=== PATIENT | female | born 1955 | race Caucasian/White ===

== ENCOUNTER 2024-03-02 13:45 | Outpatient (RCR) | payer BC, SELFPAY | END 2024-03-02 14:28 | disposition home or self-care (01) | PROVIDERS: PCP Internal Medicine; Visit Provider Family Medicine | DX: M54.2 Cervicalgia (principal); M54.16 Radiculopathy, lumbar region; Z51.89 Encounter for other specified aftercare | CPT/HCPCS: 97012; 97110; 97140; 97161 ==

== ENCOUNTER 2024-04-13 08:09 | Outpatient (CLI) | payer BC, SELFPAY ==
--- NOTE | 2024-04-13 09:00 | CRLHL7_ITS ---
For Patients: As a result of the Century Cures Act, medical imaging exams and procedure reports are released immediately into your electronic medical record. You may view this report before your referring provider. If you have questions, please contact your health care provider. Indication: SINUSITIS Technique: Performed without IV contrast Comparison: None available Findings: Frontal sinuses: Mild mucosal thickening within both frontal sinuses. Ethmoid sinuses: Clear. Maxillary sinuses: Mucosal thickening is present bilaterally, left greater than right. Partial obstruction of the left maxillary sinus drainage pathway. The right-sided pathway is patent. Sphenoid sinuses: Mild mucosal thickening present bilaterally with partial obstruction of the left sphenoethmoidal recess. The right-sided recesses patent. Nasal Cavity: Nodularity of the inferior turbinate mucosa. No polyp. Small tammy bullosa left middle turbinate. Nasal septum is relatively midline. No TMJ abnormalities identified. 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 Impression: 1. Mild bilateral sinus disease with partial obstruction of the left maxillary sinus drainage pathway and left sphenoethmoidal recess. 2. Nasal septum is midline. No nasal polyps. Please note that all CT scans at this facility use dose modulation, iterative reconstruction, and/or weight-based dosing when appropriate to reduce radiation dose to as low as reasonably achievable. Dictated by Rufino De MD @ 04/13/2024 11:29:44 AM (Electronically Signed)
== END 2024-04-13 08:10 | disposition home or self-care (01) ==
LOC: US 08:12
PROVIDERS: PCP Family Medicine; Visit Provider Family Medicine
DX: J32.9 Chronic sinusitis, unspecified (principal); J32.0 Chronic maxillary sinusitis
CPT/HCPCS: 70486

== ENCOUNTER 2024-06-20 00:12 | Emergency (ER) | payer BC, SELFPAY ==
[2024-06-20 00:21] VITALS: BP 188/93; PULSE 82; RESP 18; TEMP 36.6; O2SAT 98; BMI 27.6
--- NOTE | 2024-06-20 00:46 | ED_ITS ---
HPI - General Adult General Chief complaint: Arrhythmia/Palpitations Stated complaint: Low heart rate Time Seen by Provider: 06/20/24 00:28 Source: patient and family Mode of arrival: ambulatory Limitations: no limitations History of Present Illness HPI narrative: 68-year-old female presents emergency department for evaluation feeling of irregular heartbeat and slow pulse. This was intermittent for about a 1/2 hour. She does have a known prior history of ?irritable heart. Per her description this is consistent with either PACs or PVCs. When I mention that that is what it sounds like she tells me that that does sound correct. She has a history of hypertension. She has been treated with almost are 10 and Coreg for quite some time. Amlodipine was recently added to help lower blood pressure. She has not tolerated this well in the past due to increased palpitations and increased tenderness over her baseline. She restarted this medication at the recommendation of her cardiology in [place] a few days ago and has been noticing increased side effects. No chest pain, no severe shortness of breath. No fever or productive cough. No peripheral edema. She has no history of heart failure. She reports that she has had an echo multiple times, had a Holter monitor just a couple of months ago. Reports that her heart rate does diff to 40 overnight which of course is not unusual. She says that when she checked her heart rate that it had gotten a little slow during the runs of PVCs but then returned back to baseline. She says that this was unusual for her, prompting her to come to the ED. No recent alcohol usage, no illicit drugs or stimulants. No injury or trauma. Did not try any other interventions prior to coming to ED. does see cardiology team through [place] in [place]. Primary care team is through [facility]. No prior history of coronary artery disease or heart failure. Does have a history of hypothyroidism but reports recent endocrinology visit and that her levels were stable. Past medical history notable for hypertension, hypothyroidism. Home meds are Synthroid, Coreg, amlodipine and olmesartan. No known drug allergies. Nonsmoker. ROS notable for the low heart rate and irregular heartbeat as described above, otherwise denies times 12 systems. Related Data Home Medications ?Medication ?Instructions ?Recorded ?Confirmed amlodipine 2.5 mg tablet 2.5 mg PO DAILY 06/20/24 06/20/24 carvedilol 6.25 mg tablet 6.25 mg PO BID 06/20/24 06/20/24 Allergies Allergy/AdvReac Type Severity Reaction Status Date / Time No Known Drug Allergies Allergy Verified 04/13/24 13:45 [facility] Social History Smoking Status: Never smoker Second hand tobacco smoke exposure: No How often do you have a drink containing alcohol: never AUDIT-C Alcohol total score: 0 Non-prescribed substance use: denies use Exam Const: Vital Signs, click to edit/add: Vital Signs - 24 hr 06/20/24 00:21 Temperature 97.8 F Pulse Rate [Pulse Oximeter] 82 Respiratory Rate 18 Blood Pressure [Ri ght Upper Arm] 188/93 H Pulse Oximetry 98 Oxygen Delivery Me thod Room Air Documenting provider has reviewed patient's vital signs: yes Common normals: no apparent distress and alert General appearance: cooperative, comfortable and well kempt HENMT: Common normals: normocephalic Head and scalp: normocephalic Face and sinus: normal facial exam Eye: Common normals: conjunctivae normal General eye: normal appearance of both eyes Conjunctiva: conjunctiva(e) normal Neck & C-Spine: Common normals: no lymphadenopathy General: normal visual inspection Resp: Common normals: normal respiratory effort, no use of accessory muscles and clear to auscultation bilaterally Effort & inspection: able to speak in complete sentences Auscultation: clear to auscultation bilaterally Cardio: Common normals: regular rate, regular rhythm, S1 normal heart sound, S2 normal heart sound and no murmurs Rate: regular rate Rhythm: regular rhythm Heart sounds: S1 normal and S2 normal GI: Common normals: Normal to inspection, nondistended, normoactive bowel sounds present, soft to palpation, non-tender, no hepatosplenomegaly and no masses Palpation: soft and no hepatosplenomegaly Extremity: Common normals: normal to inspection, normal capillary refill and no pedal edema Neuro: Sensorium/orientation: alert Speech: speech normal Motor exam: strength 5/5 throughout and no movement abnormalities noted Psych: Common normals: speech normal Appearance: well kempt Attitude: engaged Activity/motor behavior: appropriate eye contact Speech: normal speech Insight: insight good Judgement: judgment good Skin: Common normals: no rashes or lesions noted General skin exam: no rashes or lesions noted Course Course ED Course: Few PVCs noted on classroom monitor. Vital signs currently stable. 68-year-old female with history of what sounds consistent with PVCs and PACs presenting with what sounds like a run of frequent PVCs and low heart rate that has since resolved. Recent starting of amlodipine could be contributing. Has had thorough workup and sees Cardiology. Recent Holter and echo per patient report were essentially normal besides the ?irritable beats? which again sound consistent with PVCs. Vitals are stable at this this time and patient is asymptomatic. Would recommend basic labs, a couple of hours of cardiac monitoring, troponin EKG. Patient was agreeable to this. Differential diagnosis including arrhythmia, hyperthyroidism, electrolyte abnormality, dehydration, acute coronary syndrome Reevaluation(s) Time of Reevaluation #1: 01:49 Reevaluation #1: Patient feeling well. Still has a few PVCs but no chest pain, severe shortness of breath. She feels reassured by my assessment and description of the PVCs. She would like to go home and rest. We discussed that the new amlodipine may be contributing but I would like for her to continue the medication for 2 weeks to see if things improve. After that, I would like for her to be in contact with her cardiology nurse practitioner to determine if a change is in order. Alarm symptoms reviewed that would warrant ED presentation. She verbalizes understanding and agreement. We did briefly discuss smart watch is with arrhythmia detectors, she may want to consider investing in 1 of these. All questions answered. Written instructions provided. Vital Signs Vital signs: Initial Vital Signs Temperature 97.8 F 06/20/24 00:21 Temperature Source Temporal Artery Scan 06/20/24 00:21 Pulse Rate 82 06/20/24 00:21 Pulse Rhythm Regular 06/20/24 00:21 Respiratory Rate 18 06/20/24 00:21 Blood Pressure 188/93 H 06/20/24 00:21 Blood Pressure Mean 124 H 06/20/24 00:21 Pulse Oximetry 98 06/20/24 00:21 Oxygen Delivery Method Room Air 06/20/24 00:21 Vital Signs Temperature 97.8 F 06/20/24 00:21 Pulse Rate 82 06/20/24 00:21 Respiratory Rate 18 06/20/24 00:21 Blood Pressure 188/93 H 06/20/24 00:21 Pulse Oximetry 98 06/20/24 00:21 Oxygen Delivery Method Room Air 06/20/24 00:21 Temperature 97.8 F 06/20/24 00:21 Pulse Rate 82 06/20/24 00:21 Respiratory Rate 18 06/20/24 00:21 Blood Pressure 188/93 H 06/20/24 00:21 Pulse Oximetry 98 06/20/24 00:21 Oxygen Delivery Method Room Air 06/20/24 00:21 Medical Decision Making Lab Data Lab results reviewed: Yes I reviewed the patient's lab results Lab results narrative: All labs reassuring. Labs: Lab Results 06/20/24 06/20/24 Range/Units 00:46 00:55 WBC 5.48 (4.50-11.00) K/uL RBC 4.54 (4.00-5.20) m/uL Hgb 13.6 (12.0-16.0) gm/dL Hct 41.1 (33.0-51.0) % MCV 91 (80-100) fL MCH 30 (26-34) pg MCHC 33 (32-36) gm/dL RDW Coeff of Milagros 13.0 (11.5-15.5) % Plt Count 244 (140-440) K/uL Neut % (Auto) 48.8 (42.0-72.0) % Lymph % (Auto) 35.6 (20-44) % [place] % (Auto) 10.2 (0.0-11.0) % Eos % (Auto) 4.0 (0.0-7.0) % Baso % (Auto) 0.7 (0.0-3.0) % Neut # (Auto) 2.67 (1.7-7.0) K/uL Lymph # (Auto) 1.95 (0.90-2.90) K/uL [place] # (Auto) 0.60 (0.00-0.90) K/UL Eos # (Auto) 0.22 (0.00-0.50) K/uL Baso # (Auto) 0.04 (0.00-0.30) K/uL Abs Immat Gran (auto) 0.04 (0.00-0.30) K/uL Imm/Tot Granulo (auto) 0.7 % Sodium 136 (135-149) mmol/L Potassium 3.9 (3.6-5.1) mmol/L Chloride 101 (96-114) mmol/L Carbon Dioxide 27 (20-32) mmol/L Anion Gap 8 (7-15) mEq/L BUN 19 (7-30) mg/dL Creatinine 0.7 (0.5-1.5) mg/dL Estimated Creat Clear 45.85 Estimated GFR 94 ml/min Glucose 107 (60-115) mg/dL Calcium 9.5 (8.4-10.6) mg/dL POC Troponin I 0.01 (0.01-0.04) ng/ml ECG Data Attestation: I personally reviewed and interpreted this ECG as follows: Prior ECG tracings: not available for review Interpretation: Sinus rhythm, rate of 61. Normal intervals and axis. No significant ST or T- wave abnormalities. PVCs noted on classroom monitor not represented on EKG. No prior comparison in our system but likely available during business hours from primary care team. Discharge Plan Discharge Clinical Impression: Symptomatic PVCs Patient Disposition: Home w/ Parent or Adult Condition: Stable Instructions: Premature Ventricular Contractions (ED) Additional Instructions: As we discussed, I think that the low heart rate that you had this evening was from a run of premature ventricular contractions. You have these every dozen or so beats here in the ED. This is a very common condition. Sometimes he will have a more extensive run of those but they are not typically dangerous. Your heart rate has been excellent here in the ED. blood work shows no secondary problems such as anemia, infection, electrolyte abnormalities, significant kidney disease, heart attack or other abnormality. I do not recommend any changes at this time. I would like for you to continue taking the amlodipine in addition to your other medications as prescribed. For many, the side effects of the medications will balance and crest after about 2 weeks. Please be in contact with your cardiology team if symptoms do not start improving within a couple of weeks. Consider investing in a fitness tracker or apple watch that has and arrhythmia detector. This may help you decide if the abnormal beats are a danger to you are not. Most find these quite helpful. Activity Level: No Restrictions Discharge Diet: Regular Prescriptions: No Action carvedilol 6.25 mg tablet 6.25 mg PO BID amlodipine 2.5 mg tablet 2.5 mg PO DAILY Follow Up/Referrals: Vesna Kennedy MD [Primary Care Provider] - Stand Alone Forms: Instant Information Info Instructions
--- OUTSIDE RECORDS SUMMARY | 2024-06-20 01:00 | XMS_ITS | Referral Summary ---
Author Organization [facility] Address [address] [place] [id number] Care Team Providers Care Tower Erector Helper Name Role Phone Elsewhere, Pcp Primary Care Provider Unavailabl e Source Comments Patient records contain information from all sites at [facility]. For routine questions regarding patient records, call [phone] during business hours, M-F 8:00 AM - 5:00 PM Central Time. Record requests for emergency care only can be directed to [phone] at any time.[facility] Encounters Date Type Department Care Team Description 04/22/2024 1:45 PM CDT Comprehensive Visit Department of Urology in [address] [phone] Tawny Mcnulty, BELINDAS, P.A.-C. Kidney And Ureter Disorder (Primary Dx) 04/19/2024 1:45 PM CDT Clinical Communication Virtual Review in [address] [phone] Pre-visit Intake 04/19/2024 2:50 PM CDT - 04/19/2024 3:09 PM CDT Hospital Encounter Department of Laboratory Medicine and Pathology, [facility] in [address] [phone] Magda Farrar M.D. Kidney And Ureter Disorder Discharge Disposition: Home or Self Care 04/19/2024 3:10 PM CDT - 04/19/2024 3:18 PM CDT Hospital Encounter Department of Radiology, [facility], in [address] [place] [address] Magda Farrar M.D. Kidney And Ureter Disorder Discharge Disposition: Home or Self Care 04/19/2024 3:19 PM CDT - 04/19/2024 11:59 PM CDT Hospital Encounter Department of Radiology, [facility], in [place], [place] [address] [place] [address] Magda Farrar M.D. Kidney And Ureter Disorder Discharge Disposition: Home or Self Care 03/21/2024 Clinical Communication Department of Urology in [place], [place] [address] [place] [address] Gilberto Flynn M.D. from Last 3 Months Allergies Active Allergy Reactions Criticality Noted Date Comments Adhesive Rash 02/11/2011 Penicillins Rash,Other (see comments) 12/28/2006 Thimerosal Other (see comments),Hives only, no other systemic symptoms 01/18/2022 Bumps on her eyes and sensitivity and redness Tuberculin Ppd Shena Test Rash 12/05/2014 Medications Medication Sig Dispensed Refills Start Date End Date Status levothyroxine (Synthroid) 75 mcg tablet Take 75 mcg by mouth daily. 05/08/2020 Active olmesartan (BENICAR) 40 mg tablet Take 40 mg by mouth daily. 05/01/2020 Active calcium carbonate-vitamin D3 1,500 mg (600 mg calcium)-200 unit per tablet Take 1 tablet by mouth daily. 02/11/2011 Active omega-3 fatty acids-fish oil 300-1,000 mg capsule Take 1 g by mouth daily. Unsure of dose Active vit A/vit C/vit E/zinc/copper (PRESERVISION AREDS ORAL) daily. Active LORazepam (ATIVAN) 0.5 mg tablet Take 0.5 mg by mouth as needed. Active magnesium oxide 200 mg magnesium tablet,chewable Chew 2 (two) times a day. 08/04/2023 Active VITAMIN B COMPLEX ORAL Take 1 tablet by mouth daily. 08/04/2023 Active carvediloL (COREG) 6.25 mg tablet Take 1 tablet (6.25 mg total) by mouth 2 (two) times a day with meals. 180 tablet 1 03/01/2024 Active mupirocin (Bactroban) 2 % ointment Apply 1 Application topically as needed. 04/13/2024 Active Active Problems Problem Noted Date Diagnosed Date Hypertension Essential Primary 02/17/2024 Palpitations 02/17/2024 Hyperlipidemia 02/17/2024 Immunizations Name Administration Dates Next Due Influenza Split 07/29/2007 Influenza TIV (IM) 07/26/2013 Influenza, Seasonal, Injectable 07/26/2013 Influenza, Unspecified 07/15/2016,07/30/2015, PPSV23 05/01/2020 RZV (SHINGRIX) 01/18/2021,07/27/2020 Tdap 10/31/2020,02/26/2009 influenza trivalent vaccine (6 months and older)(PF) 07/14/2016,07/29/2007 influenza vaccine quad (FLUZONE/FLUARIX) (6 months and older)(PF) 08/04/2022,07/23/2021,08/17/2020,2018,07/20/2018,07/22/2017,06/22/2014 Social History Tobacco Use Types Packs/Day Years Used Date Smoking Tobacco: Never Passive Smoke Exposure: Past Smokeless Tobacco: Never Tobacco Cessation:Counseling Given: Not Answered Comments:Childhood exposure Alcohol Use Standard Drinks/Week Comments Yes 1 (1 standard drink = 0.6 oz pur e alcohol) Social Connection and Isolat ion Panel [NHANES] Answer Date Recorded In a typical week, how many times do you talk on the phone with family, friends, or neighbors? More than three times a week 07/05/2020 Frequency of Social Gatherin gs with Friends and Family Not on file 07/05/2020 How often do you attend chur ch or mandaeism services? More than 4 times per year 07/05/2020 Active Member of Clubs or Organizations Not on f ile 07/05/2020 How often do you attend meet ings of the clubs or organizations you belong to? More than 4 times per year 07/05/2020 Are you , , di vorced, , never , or living with a partner? 07/05/2020 AUDIT-C Answer Date Recorded Q1: How often do you have a drink containing alc ohol? 2-3 times a week 07/05/2020 Q2: How many drinks containi ng alcohol do you have on a typical day when you are drinking? 1 or 2 07/05/2020 Q3: How often do you have si x or more drinks on one occasion? Never 07/05/2020 Overall Financial Resource Strain (CARDIA) Answe r Date Recorded How hard is it for you to pa y for the very basics like food, housing, medical care, and heating? Not hard at all 07/05/2020 PHQ-2 Answer Date Recorded PHQ-2 Score 0 07/14/2023 [facility] [place] [facility] - Occupational Stress Questionnaire Answer Date Recorded Do you feel stress - tense, restless, nervous, or anxious, or unable to sleep at night because your mind is troubled all the time - these days? Only a little 07/05/2020 Exercise Vital Sign Answer Date Recorde d On average, how many days pe r week do you engage in moderate to strenuous exercise (like a brisk walk)? 2 days Minutes of Exercise per Session Not on file 07/05/2020 Hunger Vital Sign Answer Date Recorded Within the past 12 months, y ou worried that your food would run out before you got the money to buy more. Never true 07/05/20 20 Within the past 12 months, t he food you bought just didn't last and you didn't have money to get more. Never true 07/05/2020 PRAPARE - Transportation Answer Date Re corded In the past 12 months, has l ack of transportation kept you from medical appointments or from getting medications? No 04/2020 In the past 12 months, has l ack of transportation kept you from meetings, work, or from getting things needed for daily living? No 07/05/2020 Nutrition Answer Date Recorded Nutrition: EVOO Fat Source No 07/05 On average, how many serving s of fruits and vegetables do you eat per day (serving size is equal to 1 cup or approximately the size of a tennis ball)? 2-3 07/05/2020 Dental Answer Date Recorded Dental: Regular Dentist Unknown 07/06/20 Education Answer Date Recorded What is the highest level of school you have completed or the highest degree you have received? Bachelor's degree (e.g., BA, AB, BS) 07/05/2020 Sex and Gender Information Value Date Recorded Sex Assigned at Not on file Gender Identity Not on file Sexual Orientation Not on file Last Filed Vital Signs Vital Sign Reading Time Taken Comments Blood Pressure 180/75 02/17/2024 8:11 AM CDT Pulse 70 02/17/2024 8:11 AM CDT Temperature 36.1 ??C (97 ??F) 08/17/2023 10:46 AM PINION STAKER Respiratory Rate 20 07/21/2023 2:35 PM CDT Oxygen Saturation 100% 07/06/2020 3:35 PM CDT Inhaled Oxygen Concentration - - Weight 74.2 kg (163 lb 9.3 oz) 02/17/2024 8:10 A M CDT Height 165.5 cm (5' 5.16) 08/17/2023 10:[address] Body Mass Index 27.09 08/17/2023 10:46 AM PINION STAKER Plan of Treatment Upcoming Encounters Date Type Department Care Team (Latest Contact Info) Description 07/26/2024 10:00 AM CDT Clinical Communication Virtual Review in [place], [place] 200 [place] [address] 07/27/2024 1:00 PM CDT Comprehensive Visit Division of Endocrinology in [place], [place] [address] [place] [phone] Darlin Back M.D., M.S. [address] [place] [phone] Procedures Procedure Name Priority Date/Time Associated Diagnosis Comments CT ABDOMEN WITHOUT AND WITH IV CONTRAST AND PELVIS WITH IV CON RAD - Routine (most inpatients and all outpatients) 04/19/2024 4:29 PM CDT Kidney And Ureter Disorder DX CHEST AP OR PA AND LATERAL 2 VIEWS RAD - Routine (most inpatients and all outpatients) 04/19/2024 3:17 PM CDT Kidney And Ureter Disorder ALKALINE PHOSPHATASE, S/P Routine 04/19/2024 3:03 PM CDT Kidney And Ureter Disorder ALANINE AMINOTRANSFERASE (ALT), S/P Routine 04/19/2024 3:03 PM CDT Kidney And Ureter Disorder ASPARTATE AMINOTRANSFERASE (AST), S/P Routine 04/19/2024 3:03 PM CDT Kidney And Ureter Disorder BASIC METABOLIC PANEL, S/P Routine 08/14/2023 8:23 AM PINION STAKER Hypertension Essential Primary LIPID PANEL, S Routine 07/10/2023 10:42 AM CDT Hyperlipidemia THYROID-STIMULATING HORMONE-SENSITIVE (S-TSH) Routine 07/10/2023 10:42 AM CDT Palpitations COLONOSCOPY Routine 07/06/2020 2:25 PM CDT Screening Cancer Colon from Last 3 Months or Most Recently Relevant to Health Maintenance Results * CT Abdomen without and with IV Contrast and Pelvis with IV Con (04/19/2024 4:29 PM CDT) Anatomical Region Laterality Modality Abdomen, Pelvis, Abdominal R ST LOS, Abdominal ARZ LOS, Abdominal FLA LOS N/A Computed Tomograp hy, Computed Tomography 04/19/2024 4:21 PM CDT Impressions 04/20/2024 7:38 AM CDT A couple of 2-3 mm hypodensities in the inferior right renal pole, one of which may correspond to the 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 No suspicious renal masses. Narrative 04/20/2024 7:38 AM CDT EXAM: ??CT ABDOMEN WITHOUT AND WITH IV CONTRAST AND PELVIS WITH IV CON COMPARISON: ??Renal ultrasound 02/24/2024 FINDINGS: ??In the inferior right renal pole, there are a couple of 2-3 mm hypodensities that are too small to characterize (series 6, image 74 and series 8, image 62 and 71). One of these likely corresponds to the echogenic 5 mm focus/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 No suspicious solid renal masses. No hydroureteronephrosis. 1.3 cm right adrenal nodule with density <10 HU on non-contrast phase, favored to be benign such as a lipid rich adenoma. Normal left adrenal gland. The solid organs are otherwise normal. Normal caliber bowel. No abdominopelvic lymphadenopathy. Mild aortoiliac atherosclerosis without aneurysm. Retroverted uterus with fibroids. Small fat-containing umbilical hernia. Mild levoconvex lumbar curve. No suspicious osseous lesions. The lung bases are clear. Procedure Note Mirian Urena M.D. - 04/20/2024 EXAM: CT ABDOMEN WITHOUT AND WITH IV CONTRAST AND PELVIS WITH IV CON COMPARISON: Renal ultrasound 02/24/2024 FINDINGS: In the inferior right renal pole, there are a couple of 2-3 mmhypodensities that are too small to characterize (series 6, image 74 andseries 8, image 62 and 71). One of these likely corresponds to theechogenic 5 mm focus/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 No suspicious solid renal masses. Nohydroureteronephrosis. 1.3 cm right adrenal nodule with density <10 HU on non-contrast phase,favored to be benign such as a lipid rich adenoma. Normal left adrenalgland. The solid organs are otherwise normal. Normal caliber bowel. Noabdominopelvic lymphadenopathy. Mild aortoiliac atherosclerosis withoutaneurysm. Retroverted uterus with fibroids. Small fat-containing umbilicalhernia. Mild levoconvex lumbar curve. No suspicious osseous lesions. The lungbases are clear. 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 Nosuspicious renal masses. Magda Farrar M.D. IM[facility] CT PROCEDURES * DX Chest AP or PA and Lateral 2 Views (04/19/2024 3:17 PM CDT) Anatomical Region Laterality Modality Chest, Thoracic RST LOS, Tho racic ARZ LOS, Thoracic FLA LOS N/A Digital Radiography Impressions 04/19/2024 3:19 PM CDT Clear lungs. Heart size at the upper limits of normal. Chest otherwise negative. Narrative 04/19/2024 3:19 PM CDT EXAM: ??DX CHEST AP OR PA AND LATERAL 2 VIEWS Procedure Note Andry Man M.D. - 04/19/2024 EXAM: DX CHEST AP OR PA AND LATERAL 2 VIEWS IMPRESSION: Clear lungs. Heart size at the upper limits of normal. Chest otherwisenegative. Magda Farrar M.D. IMG DIAGNOSTIC IM AGING PROCEDURES * ALT (Alanine Aminotransferase) (04/19/2024 3:03 PM CDT) Alanine Aminotransferase (ALT), S 20 7 - 45 U/L 04/19/2024 3:54 PM CDT DTL Blood (Blood, Venous) 04/19/2024 3:03 PM CDT 04/19/2024 3:36 PM CDT Magda Farrar M.D. LAB BLOOD ADD-ON Performing Organization Address City/[facility]/ZIP Co de Phone Number [facility] [address] [place] [address] * AST (Aspartate Aminotransferase) (04/19/2024 3:03 PM CDT) Aspartate Aminotransferase (AST), S 18 8 - 43 U/L 04/19/2024 3:54 PM CDT DTL Blood (Blood, Venous) 04/19/2024 3:03 PM CDT 04/19/2024 3:36 PM CDT Magda Farrar M.D. LAB BLOOD ADD-ON [facility] [address] [place] [address] * Alkaline Phosphatase (04/19/2024 3:03 PM CDT) Alkaline Phosphatase, S 67 35 - 104 U/L 04/19/2024 3:54 PM CDT DTL Blood (Blood, Venous) 04/19/2024 3:03 PM CDT 04/19/2024 3:36 PM CDT Magda Farrar M.D. LAB BLOOD ADD-ON [facility] [address] [place] [address], [facility] DTL [facility] [address] [place] [address] * (ABNORMAL) Basic Metabolic Panel (08/14/2023 8:23 AM PINION STAKER) Pathologist [facility] Potassium, P 4.3 3.6 - 5.2 mmol/L 08/14/2023 10:51 AM PINION STAKER OWAT Sodium, P 139 135 - 145 mmol/L 08/14/2023 10:51 AM PINION STAKER OWAT Chloride, P 103 98 - 107 mmol/L 08/14/2023 10:51 AM PINION STAKER OWAT Bicarbonate, P 21(L) 22 - 29 mmol/L 08/14/2023 10:50 AM PINION STAKER OWAT Anion Gap, P 15 7 - 15 08/14/2023 10:51 AM PINION STAKER OWAT BUN (Blood Urea Nitrogen), P 14 6 - 21 mg/dL 08/14/2023 10:50 AM PINION STAKER OWAT Creatinine 0.71 0.59 - 1.04 mg/dL 08/14/2023 10:50 AM PINION STAKER OWAT Estimated GFR (eGFR) >90 >=60 mL/min/BSA 08/14/2023 10:50 AM PINION STAKER OWAT Comment: Estimated GFR calculated using the 2020 CKD_EPI creatinine equation. Calcium, Total, P 9.2 8.8 - 10.2 mg/dL 08/14/2023 10:50 AM PINION STAKER OWAT Glucose, P 99 70 - 140 mg/dL 08/14/2023 10:50 AM PINION STAKER OWAT Blood (Blood, Venous) 08/14/2023 8:23 AM PINION STAKER 08/14/2023 8:36 AM PINION STAKER Estrella Garza APRN, C.N.P., D.N.P. LAB BLOOD ADD-ON [facility] [address] [place] [address], [facility] OWAT [facility] [place] [address] [place] [address] * (ABNORMAL) Lipid Panel (07/10/2023 10:42 AM CDT) Triglycerides 54 mg/dL 07/10/2023 1:53 PM CDT OWAT Comment: ----REFERENCE VALUE---- Normal: <150 mg/dL Borderline High: 150-199 mg/dL High: 200-499 mg/dL Very High: > or =500 mg/dL Cholesterol, Total 227(H) mg/dL 2022 1:53 PM CDT OWAT Comment: ----REFERENCE VALUE---- Desirable: < 200 mg/dL Borderline High: 200 - 239 mg/dL High: > or = 240 mg/dL Cholesterol, LDL, Calculated 142(H) mg/dL 07/10/2023 1:53 PM CDT OWAT Comment: ----REFERENCE VALUE---- Desirable: <100 mg/dL Above Desirable: 100-129 mg/dL Borderline High: 130-159 mg/dL High: 160-189 mg/dL Very High: >=190 mg/dL ----ADDITIONAL INFORMATION---- LDL cholesterol calculated using the Sterling/NIH equation. Cholesterol, HDL 76 >=50 mg/dL 07/10/20 1:53 PM CDT OWAT Cholesterol, Non-HDL, Calculated 151 mg/dL 07/10/2023 1:53 PM CDT OWAT Comment: ----REFERENCE VALUE---- Desirable: <130 mg/dL Above Desirable: 130-159 mg/dL Borderline High: 160-189 mg/dL High: 190-219 mg/dL Very High: > or =220 mg/dL Fasting (8 HR or more) Yes 07/10/2023 1:11 PM CDT OWAT Blood (Blood, Venous) 07/10/2023 10:42 AM CDT 07/10/2023 1:11 PM CDT Jaquelin Sher M.D. LAB BLOOD ADD-ON [facility] [address] [place] [address], [place] OWAT [facility] in [place] [address] [place] [address] from Last 3 Months or Most Recently Relevant to Health Maintenance Care Teams Tower Erector Helper Relationship Specialty Start Date End Date Elsewhere, Pcp PCP - General Family Medicine 04/19/24
--- OUTSIDE RECORDS SUMMARY | 2024-06-20 01:00 | XMS_ITS | Clinical Summary ---
Author Organization [facility] Address [place], [place] [address] Care Team Providers Care Product Tester Name Role Phone Vesna Kennedy MD Primary Care Provider [phone] Allergies Active Allergy Reactions Criticality Noted Date Comments Adhesive Rash 02/11/2011 Penicillins Rash 02/11/2011 Thimerosal Other - Describe In Comment Field 01/18/2022 Bumps on her eyes and sensitivity and redness Tuberculin Ppd Erythema,Rash 04/21/2012 From the second step. Medications Medication Sig Dispensed Refills Start Date End Date Status calcium carbonate-choleca lciferol, 600mg-200 units, (CALCIUM 600 + D,3,) 600 mg(1,500mg) -200 unit tablet Take 1 tablet by mouth 2 times daily with meals. 0 02/11/2011 Active SYNTHROID 75 mcg tablet Take 1 tablet by mouth once daily. 90 tablet 3 05/08/2020 Active fish oil-omega-3 fatty acids 300-1,000 mg Take 1 g by mouth. Acti ve vit A/vit C/vit E/zinc/copper (PRESERVISION AREDS ORAL) PreserVision AREDS Activ e vitamin B complex-folic acid (B Complex 1, with folic acid,) 0.4 mg tab tablet Take 1 Tablet by mouth once daily. 0 08/04/2023 Active magnesium oxide 200 mg magnesium chew Chew by mouth. 0 08/04/2023 Active LORazepam (ATIVAN) 0.5 mg tabIndications:Se rajni anxiety Take 1 Tablet (0.5 mg) by mouth every 6 hours if needed for Anxiety (panic). 5 Tablet 02/03/2024 Active carvediloL (COREG) 6.25 mg tablet Take 6.25 mg by mouth two times daily with meals. 03/01/2024 Active olmesartan (BENICAR) 40 mg tabletIndications :Hypertension, unspecified type Take 1 Tablet (40 mg) by mouth once daily. 90 Tablet 2 05/23/2024 Active amLODIPine (NORVASC) 2.5 mg tabletIndications :HTN (hypertension) Take 1 Tablet (2.5 mg) by mouth once daily. 90 Tablet 06/16/2024 Active olmesartan (BENICAR) 40 mg tabletIndications :Hypertension, unspecified type Take 1 Tablet (40 mg) by mouth once daily. 90 Tablet 1 02/03/2024 Discontinue d(*Availabi lity/Formul ayesha change/Cost of medication) Active Problems Problem Noted Date Diagnosed Date Spider veins 01/19/2017 Varicose vein of leg 01/19/2017 Gouty arthropathy 07/02/2012 Mixed hyperlipidemia 07/02/2012 Prediabetes 07/02/2012 VINCENZO 04/19/2012 AHI-9.9 in REM non-supine sleep, R DI-7.2 06/21/2012 Thyroiditis 05/22/2012 Overview (05/22/2012): Being seen at [place] for this. Restless leg syndrome 04/30/2012 Palpitations 03/30/2012 Bunion 09/12/2011 Overview (09/12/2011): Left great toe HTN (hypertension) 02/11/2011 Macular changes, congenital 02/11/2011 Resolved Problems Problem Noted Date Diagnosed Date Resolved Date Pericardial effusion 04/30/2012 017 Restless leg syndrome 04/30/20122011 Snoring 03/30/2012 12/11/2016 MVP (mitral valve prolapse) 02/11/2011 04/30/2012 Encounters Date Type Department Care Team Description 06/16/2024 10:25 AM CDT Preop Visit [facility] [address] [place], [place] [id number] Vesna Kennedy MD Pre-Op Exam (07/01/2024, [facility], Cecilia'Adrienne, Septoplasty) 06/16/2024 Travel 05/31/2024 Telephone [facility] [address] [facility] [address] Vesna Kennedy MD Appointment (APPT REQUEST ) 05/20/2024 Refill [facility] [address] [place] [address] Vesna Kennedy MD Refill Request (Olmesartan) 04/26/2024 8:10 AM CDT Orders Only [facility] [address] [place] [address] Lab, [facility] 04/26/2024 Travel 04/13/2024 Orders Only [facility] Scanner 1 scan: (1-Ord) [place], CT CINUS WO CON, 04/13/2024 from Last 3 Months Immunizations Name Administration Dates Next Due COVID-19 vaccine (IR Diagnostyx 30mcg/0.3mL) PFMDV 10/16/2020,09/25/2020 Influenza Virus, Unspecified 07/30/2015,07/11/20 14 Influenza, IIV3 (Age 6-35 mos) 07/14/2016,2006 Influenza, IIV3 (Age >=3 years) 07/26/2013 Influenza, IIV4 08/04/2022,,08/17/2020,2018,07/20/2018,07/22/2017,07/15/2016,0 06/22/2014 Pneumococcal Poly,23-Valent (Pneumovax) 05/01/2020 Tdap 10/31/2020,02/26/2009 Zoster (Shingrix-RZV, recombinant) 01/18/2021, Family History Medical History Relation Name Comments Diabetes type II Brother Hypertension Brother COPD Father passed at age 8 3 Diabetes type II Mother Hypertension Mother Congenital heart disease Sister at 8 days of age Relation Name Status Comments Brother Father Mother Alive Sister Social History Tobacco Use Types Packs/Day Years Used Date Smoking Tobacco: Never Smokeless Tobacco: Never Tobacco Cessation:Counseling Given: Yes Alcohol Use Standard Drinks/Week Comments Yes 2 (1 standard drink = 0.6 oz pur e alcohol) occassional PHQ-2 Answer Date Recorded PHQ-2 TOTAL SCORE 0 09/18/2023 Social Connections Answer Date Recorded Frequency of Communication with Friends and Fami ly 0 08/04/2023 Financial Resource Strain Answer Date R ecorded Difficulty of Paying Living Expenses 3 08/04/2023 Difficulty of Paying Living Expenses Not on file 08/04/2023 Food Insecurity Answer Date Recorded Worried About Running Out of Food in the Last Ye ar 1 08/04/2023 Transportation Needs Answer Date Record ed Lack of Transportation (Medical) 1 08/04/2023 Housing Stability Answer Date Recorded Unable to Pay for Housing in the Last Year 1 08/04/2023 Sex and Gender Information Value Date Recorded Sex Assigned at Not on file Gender Identity Not on file Sexual Orientation Not on file Obstetrics History Last Filed Vital Signs Vital Sign Reading Time Taken Comments Blood Pressure 162/82 06/16/2024 11:11 AM CDT Pulse 59 06/16/2024 10:27 AM CDT Temperature 37 ??C (98.6 ??F) 06/16/2024 10:27 AM CDT Respiratory Rate 14 09/10/2023 9:32 AM 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 Oxygen Saturation 97% 06/16/2024 10:27 AM CDT Inhaled Oxygen Concentration - - Weight 73.3 kg (161 lb 9.6 oz) 06/16/2024 10:27 AM CDT Height 162.6 cm (5' 4) 06/16/2024 10:27 AM CDT Body Mass Index 27.74 06/16/2024 10:27 AM CDT Plan of Treatment Health Maintenance Due Date Last Done Comments Mammogram for age 45-75 04/06/2021 04/06/20 20 (Completed outside of [facility]), 02/23/2018 (Completed outside of [facility]), 11/26/2014, Additional history exists Pneumococcal series for age 65+ (2 of 2 - PCV) 05/01/2021 05/01/2020 COVID-19 vaccine series (3 - 2022- season) 2024 10/16/2020, 09/25/2020 Influenza for age 65+ 05/29/2024 08/04/2022 , 07/23/2021, 08/17/2020, Additional history exists Depression screening for age 12+ 09/18/2024 09/18/2023, 09/17/2023, 07/03/2022, Additional history exists BMI (ht and wt on same day) for age 18+ 06/16/2025 06/16/2024, 12/25/2023, 09/23/2023, Additional history exists Colonoscopy through age 75 07/06/202507/06 (Verified in Care Everywhere or Patient Record), 06/26/2015, 07/13/2008 (Completed outside of [facility]) Lipids for age 45-75 12/20/2028 12/21/2023, 07/03/2022, 05/31/2021, Additional history exists Tetanus booster 10/31/2030 10/31/2020, 09/2008, 12/13/2008 (Completed outside of [facility]) Hepatitis C screening for ag e 18-79 Completed 05/01/2020 DEXA/DXA scan for age 65+ Completed 08/21/2020 Tdap Completed 10/31/2020, 01/27 (Completed outside of [facility]), 02/26/2009 Zoster (shingles) series for age 50+ Completed 01/18/2021, 07/27/2020 Procedures Procedure Name Priority Date/Time Associated Diagnosis Comments BASIC METABOLIC PANEL Routine 06/16/2024 11:23 AM CDT HTN (hypertension) TSH Routine 04/26/2024 8:20 AM CDT Hypothyroidism (acquired) SCAN-CT INTERPRETATION 04/13/2024 12:00 AM CDT LIPID PANEL Routine 12/21/2023 8:41 AM CDT Pure hypercholesterolemia XR DXA BONE DENSITY 2 SITES AXIAL Routine 08/21/2020 9:54 AM 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 Fasting reference interval UREA NITROGEN (BUN) 16 7 - 25 mg/dL [facility] CREATININE 0.78 0.50 - 1.05 mg/dL [facility] EGFR 82 > OR = 60 mL/min/1. 73m2 [facility] BUN/CREATININE RATIO SEE NOTE: 6 - 22 (calc) [facility] Comment: ?? Not Reported: BUN and Creatinine are within ?? reference range. ? SODIUM 134(L) 135 - 146 mmol/L [facility] POTASSIUM 4.4 3.5 - 5.3 mmol/L [facility] CHLORIDE 99 98 - 110 mmol/L [facility] CARBON DIOXIDE 27 20 - 32 mmol/L [facility] ELECTROLYTE BALANCE 8 7 - 17 mmol/L (calc) [facility] CALCIUM 9.3 8.6 - 10.4 mg/dL [facility] Blood BLOOD SPECIMEN / Unknown 06/16/2024 11:23 AM CDT 06/16/2024 11:24 AM CDT Vesna Kennedy MD CHEMISTRY Location [facility] [address] [place] [address], [facility] [address] [place] [address] * TSH (04/26/2024 8:20 AM CDT) Pathologist [facility] TSH 2.36 0.27 - 4.20 uIU/mL 04/26/2024 8:51 AM CDT [facility] Blood BLOOD SPECIMEN / Unknown Venipuncture / Unknown 04/26/2024 8:20 AM CDT 04/26/2024 8:21 AM CDT Narrative [facility] - 04/26/2024 8:51 AM CDT In Adults, TSH values between 5.00 and 10.00 uIU/ml do not necessarily indicate the presence of Hypothyroidism. Correlation with clinical findings such as presence of goiter and/or Thyroperoxidase (TPO) Antibody may be helpful. For more information please refer to MARIA DOLORES 2004; 291: 228-238. Vesna Kennedy MD CHEMISTRY [facility] [address] [place] [address] * SCAN-CT INTERPRETATION (04/13/2024 12:00 AM CDT) Anatomical Region Laterality Modality Other Scanner OTHER * (ABNORMAL) LIPID PANEL (12/21/2023 8:41 AM CDT) CHOLESTEROL,TOTAL 214(H) 100 - 199 mg/dL 12/21/2023 9:05 AM [facility] Comment: Cholesterol, Total Reference Ranges Desirable <200 mg/dL Borderline 200-239 mg/dL High >=240 mg/dL TRIGLYCERIDES 42 <150 mg/dL 12/21/2023 9:05 AM [facility] HDL CHOLESTEROL 83 >40 mg/dL 9:05 AM [facility] NON-HDL CHOLESTEROL 131 <145 mg/dl 12/21/2023 9:05 AM [facility] CHOL/HDL RATIO 2.58 <4.50 12/21/2023 9:05 AM [facility] LDL CHOLESTEROL 123 <=130 mg/dL 12/21/2023 9:05 AM [facility] VLDL CHOLESTEROL 8 <=30 mg/dL 12/21/2023 9:05 AM [facility] PROVIDER ORDERED STATUS RANDOM 12/21/2023 9:05 AM [facility] Blood BLOOD SPECIMEN / Unknown Venipuncture / Unknown 12/21/2023 8:41 AM CDT 12/21/2023 8:41 AM CDT Mirtha Sotomayor MD CHEMISTRY [facility] [address] [place] [address] * (ABNORMAL) XR DXA BONE DENSITY 2 SITES AXIAL (08/21/2020 9:54 AM 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 Vesna Kennedy MD DEXA * ANTI HCV (05/01/2020 8:51 AM CDT) HEPATITIS C ANTIBODY Non-React chloe Non-React chloe 05/01/2020 3:26 PM CDT [facility] Comment:Antibodies to HCV no t detected; does not exclude the possibility of exposure to HCV. Blood BLOOD SPECIMEN / Unknown Butterfly / Unknown 05/01/2020 8:51 AM CDT 05/01/2020 8:52 AM CDT Vesna Kennedy MD SEND OUTS [facility] [address] [place] [address], [place] from Last 3 Months or Most Recently Relevant to Health Maintenance Care Teams Product Tester Relationship Specialty Start Date End Date Vesna Kennedy MD [address] [place] [address] PCP - General Family Practice 03/25/19
--- OUTSIDE RECORDS SUMMARY | 2024-06-20 01:00 | XMS_ITS | Encounter Summary ---
Author Organization [facility] Address [address] [place] [address] Care Team Providers Care Community Service Worker Name Role Phone Elsewhere, Pcp Primary Care Provider Unavailabl e Reason for Referral * Outpatient (Routine) - Authorized Specialty Diagnoses / Procedures Referred By Contac t Referred To Contact Urology Tawny Mcnulty MPAS, P.A.-CLuis Fernando [address] [place] [phone] Gilberto Flynn M.D. [address] [place] [phone] Referral ID Status Reason Start Date Expiration Date V isits Requested Visits Authorized [id number] Authorized 04/22/2024 10/22/2025 1 1 * MRI/CAT/PET Scan (Routine) - Pending Review Specialty Diagnoses / Procedures Referred By Contac t Referred To Contact Radiology Diagnoses Kidney And Ureter Disorder Procedures CT Abdomen Pelvis without and with IV Contrast Tawny Mcnulty MPAS, P.A.-C. [address] [place] [phone] [facility] Referral ID Status Reason Start Date Expiration Date V isits Requested Visits Authorized [id number] Pending Review 04/22/2024 04/22/2025 1 1 Reason for Visit * Appointment Request (Routine) - Closed Specialty Diagnoses / Procedures Referred By Medhat reeves Referred To Contact Urology Diagnoses Angiomyolipoma Kidney Right Vesna Kennedy M.D. [address] [place] [address] Referral ID Status Reason Start Date Expiration Date Visits Re quested Visits Authorized [id number] Closed 03/18/2024 03/18/2025 1 1 Encounter Details Date Type Department Care Team (Late st Contact Info) Description 04/22/2024 1:45 PM CDT Comprehensive Visit Department of Urology in [place], [place] [address] [place] [address] Tawny Mcnulty MPAS, P.A.-C. [address] [place] [address] Kidney And Ureter Disorder (Primary Dx) Social History Tobacco Use Types Packs/Day Years Used Date Smoking Tobacco: Never Passive Smoke Exposure: Past Smokeless Tobacco: Never Comments:Childhood exposure Alcohol Use Standard Drinks/Week Comments [...] often do you attend chur ch or bahai services? More than 4 times per year [...] Answer Date Recorded PHQ-2 Score 0 07/14/2023 [facility] - Occupational Stress [...] Date Recorded Dental: Regular Dentist Unknown 07/06/20 23 Education Answer Date Recorded What is the highest level of school you have completed or the highest degree you have received? Bachelor's degree (e.g., BA, AB, BS) 07/05/2020 Sex and Gender Information Value Date Recorded Sex Assigned at Not on file Gender Identity Not on file Sexual Orientation Not on file documented as of this encounter Consult Notes * Tawny Mcnulty MPAS, PMychal. - 04/22/2024 1:45 PM CDT SUBJECTIVE REQUESTING PROVIDER Vesna Kennedy M.D. REASON FOR CONSULT Right renal finding HISTORY OF PRESENT ILLNESS Yuni Wilcox is 68 y.o. and referred for evaluation of incidentally discovered right renal findings. Patient has been undergoing evaluation of hypertension and underwent ultrasound of the kidneys on 02/24/2024. 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 She was further evaluated with a CT of the abdomen on 04/19/2024, which showed a couple of 2-3 mm hypodensities in the inferior right renal pole, 1 of which may correspond to the 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 No suspicious renal masses. Also noted was a 1.3 right adrenal nodule with density less than 10 a on noncontrast phase, favored to be benign such as a lipid rich adenoma. Patient denies any family history of kidney cancer or bladder cancer. She denies gross hematuria, flank pain, urinary tract infections, or other urinary concerns. Lifetime nonsmoker. She does continue to struggle with blood pressure control and has been working closely with the Cardiology team in this regard. Social History: Social History Tobacco Use Smoking status: Never Passive exposure: Past Smokeless tobacco: Never Tobacco comments: Childhood exposure Substance Use Topics Alcohol use: Yes Alcohol/week: 1.0 - 3.0 standard drink of alcohol Types: 1 - 3 Glasses of wine per week Family History: Family History Problem Relation Name Age of Onset Colon cancer Aunt REVIEW OF SYSTEMS Per HPI. Patient Active Problem List Diagnosis Hypertension Essential Primary Palpitations Hyperlipidemia PAST SURGICAL/MEDICAL HISTORY Past Surgical History: Procedure Laterality Date JOINT REPLACEMENT OTHER CONVERTED SHX (SEE COMMENT) N/A 10/05/2007 >Colonoscopy, low risk screen Past Medical History: Diagnosis Date Apnea Sleep Obstructive Arrhythmia Beat Premature Ventricular Cancer Colon Family History Dysfunction Thyroid Hypertension NOS OBJECTIVE PHYSICAL EXAM General: Alert, oriented, no acute distress LABORATORY Recent Results (from the past 72 hour(s)) AST (Aspartate Aminotransferase) Collection Time: 04/19/24 3:03 PM Result Value Aspartate Aminotransferase (AST), S 18 ALT (Alanine Aminotransferase) Collection Time: 04/19/24 3:03 PM Result Value Alanine Aminotransferase (ALT), S 20 Alkaline Phosphatase Collection Time: 04/19/24 3:03 PM Result Value Alkaline Phosphatase, S [address] Abdomen without and with IV Contrast and Pelvis with IV Con Result Date: 04/20/2024 Narrative: EXAM: CT ABDOMEN WITHOUT AND WITH IV [...] otherwise normal. Normal caliber bowel. No abdominopelvic lymphadenop athy. Mild aortoiliac atherosclerosis without aneurysm. Retroverted uterus with fibroids. Small fat-containing umbilical hernia. Mild levoconvex lumbar curve. No suspicious osseous lesions. The lung bases are clear. Impression: A couple of 2-3 mm hypodensities in the inferior right renal pole, one of which may correspond to the 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 No suspicious renal masses. DX Chest AP or PA and Lateral 2 Views Result Date: 04/19/2024 Narrative: EXAM: DX CHEST AP OR PA AND LATERAL 2 VIEWS Impression: Clear lungs. Heart size at the upper limits of normal. Chest otherwise negative. ASSESSMENT / PLAN #1 Right renal lesions It was a pleasure meeting with Ms. Wilcox today in clinic for evaluation of the right renal findings. We discussed the CT results which show a few small lesions in the right renal pole which are toosmall to characterize. I recommend we complete a follow up image in approximately 6 months to ensure stability of the findings. In regard to the right adrenal finding, I have encouraged the patient to reach out to her primary care provider to determine additional steps for this finding. She is in agreement with this plan of care. Plan Follow up six-months with CT abdomen imaging and office visit with a renal provider. Signed by: JEANNE Cedeno P.A.-C. 04/22/2024 1:53 PM CDT documented in this encounter Plan of Treatment Upcoming Encounters Date Type Department Care Team (Latest Contact Info) Description 07/26/2024 10:00 AM CDT Clinical Communication Virtual Review in [place], [place] [address] [place] [address] 07/27/2024 1:00 PM CDT Comprehensive Visit Division of Endocrinology in [place], [place] [address] [place] [phone] Darlin Back M.D., M.S. [address] [place] [phone] Scheduled Orders Name Type Priority Associated Diagnoses Orde r Schedule CT Abdomen Pelvis without and with IV Contrast Imaging RAD - Routine (most inpatients and all outpatients) Kidney And Ureter Disorder Expected: 10/23/2024, Expires: 07/23/2025 Creatinine with Estimated GFR Lab Routine Kidney And Ureter Disorder Expected: 10/23/2024, Expires: 07/23/2025 Scheduled Referrals Name Type Priority Associated Diagnoses Orde r Schedule Urology office visit (clinic) General Outpatient Referral Routine Expected: 10/23/2024, Expires: 07/23/2025 documented as of this encounter Visit Diagnoses Diagnosis Kidney And Ureter Disorder- Primary documented in this encounter Care Teams Community Service Worker Relationship Specialty Start Date End Date Elsewhere, Pcp PCP - General Family Medicine 04/19/24 documented as of this encounter
--- OUTSIDE RECORDS SUMMARY | 2024-06-20 01:00 | XMS_ITS ---
Author Organization [facility] Address [address] [place] [address] Care Team Providers Care Breakfast And Room Attendant Name Role Phone Unavailable Unavailable Unavailable Surgery Details Not on file Complications Check Surgery Details section. Procedure Estimated Blood Loss Check Surgery Details section. Procedure Findings Check Surgery Details section. Procedure Specimens Taken Check Surgery Details section.
--- OUTSIDE RECORDS SUMMARY | 2024-06-20 01:00 | XMS_ITS | Referral Summary ---
Author Organization [facility] Address [address] [place] [address]. [place] [address] Care Team Providers Care Intensive Care Specialist Name Role Phone Rufino Perrin MD Primary Care Provider [phone] Social History Tobacco Use Types Packs/Day Years Used Date Smoking Tobacco: Never Assessed Adolescent Education Answer Date Record ed Getting School Help Needed Not on file 06/26 Sex and Gender Information Value Date Recorded Sex Assigned at Not on file Gender Identity Not on file Sexual Orientation Not on file Plan of Treatment Not on file Procedures Procedure Name Priority Date/Time Associated Diagnosis Comments MA SCREENING BILATERAL W/ EZIO Routine 07/28/2023 3:45 PM CDT Mammographic microcalcification from Last 3 Months or Most Recently Relevant to Health Maintenance Results * MA Screen Bilateral w/Ezio (07/28/2023 3:45 PM CDT) Anatomical Region Laterality Modality Breast Bilateral Mammography Impressions 07/29/2023 8:50 AM CDT IMPRESSION: ACR BI-RADS Category 1: Negative RECOMMENDED FOLLOW-UP: Annual routine screening mammogram The results and recommendations of this examination will be communicated to the patient. Esvin Dobbins MD Narrative 07/29/2023 8:50 AM CDT BILATERAL FULL FIELD DIGITAL SCREENING MAMMOGRAM WITH TOMOSYNTHESIS Performed on: 07/28/23 Compared to: 07/04/2022 and 02/13/2017 Technique: ??This study was evaluated with the assistance of Computer-Aided Detection. ??Breast Tomosynthesis was used in interpretation. Findings: The breasts are heterogeneously dense, which may obscure small masses. ??There is no radiographic evidence of malignancy. Rufino Perrin MD [facility] from Last 3 Months or Most Recently Relevant to Health Maintenance Care Teams Intensive Care Specialist Relationship Specialty Start Date End Date Rufino Perrin MD [address] [place] [phone] PCP - General medical sales representative 12/06/13
--- OUTSIDE RECORDS SUMMARY | 2024-06-20 01:00 | XMS_ITS | Clinical Summary ---
Author Organization [facility] Address [address] [place] [address]. [place] [address] Care Team Providers Care Forgesmith Name Role Phone Rufino Perrin MD Primary Care Provider Family History Medical History Relation Comments Colon Cancer Maternal Aunt Breast Cancer Paternal Cousin 50s Ovarian Cancer No family hx of Relation Status Comments Maternal Aunt Paternal Cousin Other Social History Tobacco Use Types Packs/Day Years Used Date Smoking Tobacco: Never Assessed Adolescent Education Answer Date Record ed Getting School Help Needed Not on file 06/26 Sex and Gender Information Value Date Recorded Sex Assigned at Not on file Gender Identity Not on file Sexual Orientation Not on file Plan of Treatment Health Maintenance Due Date Last Done Comments ADVANCE CARE PLANNING 1955 ANNUAL REVIEW OF HM ORDERS 1954 CT COLONOGRAPHY 1954 DEXA 1954 FIT 1954 FLEX SIG 1954 GLUCOSE 1954 sDNA (Cologuard) 1954 COLONOSCOPY 1964 COLORECTAL CANCER SCREENING 1964 HEPATITIS C SCREENING 1972 LIPID 1994 FALL RISK ASSESSMENT 2019 Pneumococcal Vaccine: 65+ Years (2 of 2 - PCV) 05/01/2021 05/01/2020 MEDICARE ANNUAL WELLNESS VISIT 09/10/2021 09/10/2020 PHQ-2 (once per calendar year) 2023 COVID-19 Vaccine ( - season) 2024 10/16/2020, 09/25/2020 INFLUENZA VACCINE (#1) 2024 2, 07/23/2021, 08/17/2020, Additional history exists MAMMO SCREENING 07/28/2025 07/28/2023, 03/2022, 06/12/2021, Additional history exists RSV VACCINE (1 - 1-dose 75+ series) 2029 DTAP/TDAP/TD IMMUNIZATION (3 - Td or Tdap) 10/31/2030 10/31/2020, 02/26/2009 ZOSTER IMMUNIZATION Completed 01/18/2021, 0 HPV IMMUNIZATION Aged Out No longer e ligible based on patient's age to complete this topic MENINGITIS IMMUNIZATION Aged Out No l onger eligible based on patient's age to complete this topic RSV MONOCLONAL ANTIBODY Aged Out No l onger eligible based on patient's age to complete this topic Procedures Procedure Name Priority Date/Time Associated Diagnosis [...] Recently Relevant to Health Maintenance Care Teams Forgesmith Relationship Specialty Start Date End Date Rufino Perrin MD [address] [phone] PCP - General carcass washer 12/06/13
--- OUTSIDE RECORDS SUMMARY | 2024-06-20 01:00 | XMS_ITS | Encounter Summary ---
Author Organization [facility] Address [address] [place] [id number] Care Team Providers Care Weight Control Lecturer Name Role Phone Elsewhere, Pcp Primary Care Provider Unavailabl e Reason for Visit * Reason Onset Date Comments Pre-visit Intake 04/19/2024 Encounter Details Date Type Department Care Team (Latest Contact Info) Description 04/19/2024 1:45 PM CDT Clinical Communication Virtual Review in [place], [place] [address] [place] [address] Pre-visit Intake Social History Tobacco Use Types Packs/Day Years [...] often do you attend chur ch or confucianism services? More than 4 times per year [...] Answer Date Recorded PHQ-2 Score 0 07/14/2023 [facility] - Occupational [...] on file documented as of this encounter Plan of Treatment Upcoming Encounters Date Type Department Care Team (Latest Contact Info) Description 07/26/2024 10:00 AM CDT Clinical Communication Virtual Review in [place], [place] [address] [place] [address] 07/27/2024 1:00 PM CDT Comprehensive Visit Division of Endocrinology in [place], [place] [address] [place] [phone] Darlin Back M.D., M.S. [address] [place] [phone] documented as of this encounter Visit Diagnoses Not on filedocumented in this encounter Care Teams Weight Control Lecturer Relationship Specialty Start Date End Date Elsewhere, Pcp PCP - General Family Medicine 04/19/24 documented as of this encounter
--- OUTSIDE RECORDS SUMMARY | 2024-06-20 01:00 | XMS_ITS | Clinical Summary ---
Author Organization [facility] Address [address] [place] [address] Care Team Providers Care Store Lead Name Role Phone Elsewhere, Pcp Primary Care Provider Unavailabl e Source Comments Patient records contain information from all sites at [facility]. For routine questions regarding patient records, call [phone] during business hours, M-F 8:00 AM - 5:00 PM Central Time. Record requests for emergency care only can be directed to [phone] at any time.[facility] Allergies Active Allergy Reactions Criticality Noted Date [...] Essential Primary 02/17/2024 Palpitations 02/17/2024 Hyperlipidemia 02/17/2024 Encounters Date Type Department Care Team Description 04/22/2024 1:45 PM CDT Comprehensive Visit Department of Urology in [address] [phone] Tawny Mcnulty, JEANNE, P.A.-C. Kidney And Ureter Disorder (Primary Dx) 04/19/2024 3:19 PM CDT - 04/19/2024 11:59 PM CDT Hospital Encounter Department of Radiology, [facility] in [place], [place] [address] [place] [phone] Magda Farrar M.D. Kidney And Ureter Disorder Discharge Disposition: Home or Self Care 04/19/2024 3:10 PM CDT - 04/19/2024 3:18 PM CDT Hospital Encounter Department of Radiology, [facility] in [place], [place] [address] [place] [phone] Magda Farrar M.D. Kidney And Ureter Disorder Discharge Disposition: Home or Self Care 04/19/2024 2:50 PM CDT - 04/19/2024 3:09 PM CDT Hospital Encounter Department of Laboratory Medicine and Pathology, [facility] in [place], [place] [address] [place] [phone] Magda Farrar M.D. Kidney And Ureter Disorder Discharge Disposition: Home or Self Care 04/19/2024 1:45 PM CDT Clinical Communication Virtual Review in [place], [place] 200 [place] [address] Pre-visit Intake 03/21/2024 Clinical Communication Department of Urology in [place], [place] [address] [place] [address] Gilberto Flynn M.D. from Last 3 Months Immunizations Name Administration Dates Next Due Influenza Split 07/29/2007 Influenza TIV (IM) 07/26/2013 Influenza, Seasonal, Injectable 07/26/2013 Influenza, Unspecified 07/15/2016,07/30/2015, PPSV23 05/01/2020 RZV (SHINGRIX) 01/18/2021,07/27/2020 Tdap 10/31/2020,02/26/2009 influenza trivalent vaccine (6 months and older)(PF) 07/14/2016,07/29/2007 influenza vaccine quad (FLUZONE/FLUARIX) (6 months and older)(PF) 08/04/2022,07/23/2021,08/17/2020,2018,07/20/2018,07/22/2017,06/22/2014 Family History Medical History Relation Name Comments Colon cancer Aunt Relation Name Status Comments Aunt Other Social History Tobacco Use Types Packs/Day [...] often do you attend chur ch or church services? More than 4 times per year [...] Answer Date Recorded PHQ-2 Score 0 07/14/2023 [facility] - Occupational [...] 36.1 ??C (97 ??F) 08/17/2023 10:46 AM RECREATIONAL SPORTS DIRECTOR Respiratory Rate 20 07/21/2023 2:35 PM CDT Oxygen Saturation 100% 07/06/2020 3:35 PM CDT Inhaled Oxygen Concentration - - Weight 74.2 kg (163 lb 9.3 oz) 02/17/2024 8:10 A M CDT Height 165.5 cm (5' 5.16) 08/17/2023 10:[address] Body Mass Index 27.09 08/17/2023 10:46 AM RECREATIONAL SPORTS DIRECTOR Plan of Treatment Upcoming Encounters Date Type Department Care Team (Latest Contact Info) Description 07/26/2024 10:00 AM CDT Clinical Communication Virtual Review in [place], [place] 200 [place] [address] 07/27/2024 1:00 PM CDT Comprehensive Visit Division of Endocrinology in [place], [place] [address] [place] [phone] Darlin Back M.D., M.S. [address] [place] [phone] Health Maintenance Due Date Last Done Comments Bone Density Scan (Osteoporo sis Screen) 1954 CT Colonography 1954 Cologuard 1954 FIT 1954 Hepatitis C Screening 1955 Pneumococcal vaccine (65+ ye ars) (2 of 2 - PCV) 05/01/2021 05/01/2020 Depression Screening (Annual PHQ-2) 09/28/2023 Fall Risk Screen (Annual) 09/28/2023 Office Visit for Blood Press ure Check / Re-check 05/19/2024 02/17/2024 COVID-19 Vaccine (2023-2 5 season) 2024 10/16/2020, 09/25/2020 Influenza Vaccine (#1) 2024 , 07/23/2021, 08/17/2020, Additional history exists Mammogram 07/28/2024 07/28/2023, 06/30, 07/04/2022, Additional history exists Lipid (Cholesterol) Screening 12/20/2024, 07/10/2023, 07/03/2022, Additional history exists Creatinine Level (Kidney Fun ction Test) 03/09/2025 03/09/2024, 01/26/2024, 01/18/2024, Additional history exists Potassium Level 03/09/2025 03/09/2024, 12/29, 01/18/2024, Additional history exists Sodium Level 03/09/2025 03/09/2024, 12/29, 01/18/2024, Additional history exists Thyroid Stimulating Hormone (TSH) test for thyroid function 04/26/2025 04/26/2024, 03/09/2024, 07/10/2023, Additional history exists Fasting Glucose for Diabetes Screening 03/09/2027 03/09/2024, 01/26/2024, 01/18/2024, Additional history exists Colonoscopy 07/06/2030 07/06/2020, 05/2020, 06/26/2015, Additional history exists Colorectal Cancer Screening 07/06/2030 DTaP,Tdap,and Td Vaccines (3 - Td or Tdap) 10/31/2030 10/31/2020, 02/26/2009 Cervical Cancer Screening Discontinued 2011 (Performed elsewhere) Zoster Vaccines Completed 01/18/2021, 07/27/2020 Procedures Procedure Name Priority [...] METABOLIC PANEL, S/P Routine 08/14/2023 8:23 AM RECREATIONAL SPORTS DIRECTOR Hypertension Essential Primary LIPID PANEL, S Routine [...] seen on ultrasound. Nosuspicious renal masses. Magda LAWRENCE CT PROCEDURES * DX Chest AP or [...] CDT Magda Farrar M.D. LAB BLOOD ADD-ON [facility] [address] [facility] 200 [place] [address] * AST (Aspartate Aminotransferase) (04/19/2024 3:03 PM CDT) Aspartate Aminotransferase (AST), S 18 8 - 43 U/L 04/19/2024 3:54 PM CDT DTL Blood (Blood, Venous) 04/19/2024 3:03 PM CDT 04/19/2024 3:36 PM CDT Magda Farrar M.D. LAB BLOOD ADD-ON [facility] [address] [place] [address], [facility] [address] [place] [address] * Alkaline Phosphatase (04/19/2024 3:03 PM CDT) Alkaline Phosphatase, S 67 35 - 104 U/L 04/19/2024 3:54 PM CDT DTL Blood (Blood, Venous) 04/19/2024 3:03 PM CDT 04/19/2024 3:36 PM CDT Magda Farrar M.D. LAB BLOOD ADD-ON [facility] [address] [place] [address], [facility] [address] [place] [address] * (ABNORMAL) Basic Metabolic Panel (08/14/2023 8:23 AM RECREATIONAL SPORTS DIRECTOR) Potassium, P 4.3 3.6 - 5.2 mmol/L 08/14/2023 10:51 AM RECREATIONAL SPORTS DIRECTOR OWAT Sodium, P 139 135 - 145 mmol/L 08/14/2023 10:51 AM RECREATIONAL SPORTS DIRECTOR OWAT Chloride, P 103 98 - 107 mmol/L 08/14/2023 10:51 AM RECREATIONAL SPORTS DIRECTOR OWAT Bicarbonate, P 21(L) 22 - 29 mmol/L 08/14/2023 10:50 AM RECREATIONAL SPORTS DIRECTOR OWAT Anion Gap, P 15 7 - 15 08/14/2023 10:51 AM RECREATIONAL SPORTS DIRECTOR OWAT BUN (Blood Urea Nitrogen), P 14 6 - 21 mg/dL 08/14/2023 10:50 AM RECREATIONAL SPORTS DIRECTOR OWAT Creatinine 0.71 0.59 - 1.04 mg/dL 08/14/2023 10:50 AM RECREATIONAL SPORTS DIRECTOR OWAT Estimated GFR (eGFR) >90 >=60 mL/min/BSA 08/14/2023 10:50 AM RECREATIONAL SPORTS DIRECTOR OWAT Comment: Estimated GFR calculated using the 2020 CKD_EPI creatinine equation. Calcium, Total, P 9.2 8.8 - 10.2 mg/dL 08/14/2023 10:50 AM RECREATIONAL SPORTS DIRECTOR OWAT Glucose, P 99 70 - 140 mg/dL 08/14/2023 10:50 AM RECREATIONAL SPORTS DIRECTOR OWAT Blood (Blood, Venous) 08/14/2023 8:23 AM RECREATIONAL SPORTS DIRECTOR 08/14/2023 8:36 AM RECREATIONAL SPORTS DIRECTOR Estrella Dueñas Greg PARDO C.N.P., D.N.P. LAB BLOOD ADD-ON [facility] [address] [place] [address], [facility] OWAT [facility] [place] [address] [place] [address] * (ABNORMAL) Lipid Panel (07/10/2023 10:42 AM [...] CDT Jaquelin Sher M.D. LAB BLOOD ADD-ON [facility] [address] [place] [address], [place] OWAT [facility] [place] [address] [place] [address] from Last 3 Months or Most Recently Relevant to Health Maintenance Care Teams Store Lead Relationship Specialty Start Date End Date Elsewhere, Pcp PCP - General Family Medicine 04/19/24
--- OUTSIDE RECORDS SUMMARY | 2024-06-20 01:01 | XMS_ITS | Encounter Summary ---
Author Organization [facility] Address [address] [place] [address] Care Team Providers Care Occupational Health And Safety Adviser Name Role Phone Elsewhere, Pcp Primary Care Provider Unavailabl e Reason for Referral * MRI/CAT/PET Scan (Routine) - Closed Specialty Diagnoses / Procedures Referred By Danniac t Referred To Contact Radiology Diagnoses Kidney And Ureter Disorder Procedures CT Abdomen without and with IV Contrast and Pelvis with IV Con CT Abdomen Pelvis with IV Contrast Magda Farrar M.D. 200 [place] [address] [facility] Referral ID Status Reason Start Date Expiration Date Visits Re quested Visits Authorized [id number] Closed 04/19/2024 05/19/2024 1 1 Reason for Visit * MRI/CAT/PET Scan (Routine) - Closed Specialty Diagnoses / Procedures Referred By Contac t Referred To Contact Radiology Diagnoses Kidney And Ureter Disorder Procedures CT Abdomen without and with IV Contrast and Pelvis with IV Con CT Abdomen Pelvis with IV Contrast Magda Farrar M.D. [address] [place] [phone] [facility] Referral ID Status Reason Start Date Expiration Date Visits Re quested Visits Authorized [id number] Closed 04/19/2024 05/19/2024 1 1 Encounter Details Date Type Department Care Team ([facility] st Contact Info) Description 04/19/2024 3:19 PM CDT - 04/19/2024 11:59 PM CDT Hospital Encounter Department of Radiology, [facility], in [place], [place] 200 [place] [address] Magda Farrar M.D. 200 [place] [address] Kidney And Ureter Disorder Discharge Disposition: Home or Self Care Social History Tobacco Use Types Packs/Day Years [...] 07/05/2020 How often do you attend chur or zoroastrianism services? More than 4 times per year [...] Answer Date Recorded PHQ-2 Score 0 07/14/2023 [facility] [place] of Occupat ional Health - Occupational Stress [...] on file documented as of this encounter Medications at Time of Discharge Medication Sig Dispensed Refills Start Date End Date calcium carbonate-vitamin D3 1,500 mg (600 mg calcium)-200 unit per tablet Take 1 tablet by mouth daily. 02/11/2011 carvediloL (COREG) 6.25 mg tablet Take 1 tablet (6.25 mg total) by mouth 2 (two) times a day with meals. 180 tablet 1 03/01/2024 levothyroxine (Synthroid) 75 mcg tablet Take 75 mcg by mouth daily. 05/08/2020 LORazepam (ATIVAN) 0.5 mg tablet Take 0.5 mg by mouth as needed. magnesium oxide 200 mg magnesium tablet,chewable Chew 2 (two) times a day. 08/04/2023 mupirocin (Bactroban) 2 % ointment Apply 1 Application topically as needed. 04/13/2024 olmesartan (BENICAR) 40 mg tablet Take 40 mg by mouth daily. 05/01/2020 omega-3 fatty acids-fish oil 300-1,000 mg capsule Take 1 g by mouth daily. Unsure of dose vit A/vit C/vit E/zinc/copper (PRESERVISION AREDS ORAL) daily. VITAMIN B COMPLEX ORAL Take 1 tablet by mouth daily. 08/04/2023 documented as of this encounter Plan of Treatment Upcoming Encounters Date Type Department Care Team (Latest Contact Info) Description 07/26/2024 10:00 AM CDT Clinical Communication Virtual Review in [place], [place] 200 [place] [address] 07/27/2024 1:00 PM CDT Comprehensive Visit Division of Endocrinology in [address] [phone] Darlin Back M.D., M.S. [address] [place] [phone] documented as of this encounter Procedures Procedure Name Priority Date/Time Associated Diagnosis Comments CT ABDOMEN WITHOUT AND WITH IV CONTRAST AND PELVIS WITH IV CON RAD - Routine (most inpatients and all outpatients) 04/19/2024 4:29 PM CDT Kidney And Ureter Disorder documented in this encounter Results * CT Abdomen without and with [...] Nosuspicious renal masses. Magda LAWRENCE CT PROCEDURES documented in this encounter Visit Diagnoses Diagnosis Kidney And Ureter Disorder documented in this encounter Administered Medications Inactive Administered Medications - up to 3 most recent administrations Medication Order MAR Action Action Date Dose Rate Site iohexoL 300 mg iodine/mL solution 1-200 mL (Omnipaque) 1-200 mL, intravenous, Once in imaging, contrast, Starting on Thu04/19/24 at 1549, For 1 dose, Imaging Protocol Orders, Dose per Radiant Medication Guidelines Given 04/19/2024 1:51 PM CDT 140 mL sodium chloride (PF) 0.9 % injection 1-100 mL 1-100 mL, intravenous, Once, On 04/19/24 at 1615, For 1 dose, Imaging Protocol Orders, Dose per Radiant Medication Guidelines Given 04/19/2024 4:21 PM CDT 50 mL documented in this encounter Care Teams Occupational Health And Safety Adviser Relationship Specialty Start Date End Date Elsewhere, Pcp PCP - General Family Medicine 04/19/24 documented as of this encounter
--- OUTSIDE RECORDS SUMMARY | 2024-06-20 01:01 | XMS_ITS | Encounter Summary ---
Author Organization [facility] Address [address] [place] [address] Care Team Providers Care Spring Manufacturing Set Up Technician Name Role Phone Elsewhere, Pcp Primary Care Provider Unavailabl e Reason for Referral * Outpatient (Routine) - Closed Specialty Diagnoses / Procedures Referred By Danniac t Referred To Contact Diagnoses Kidney And Ureter Disorder Procedures DX Chest AP or PA and Lateral 2 Views Magda Farrar M.D. 200 [place] [address] [facility] Referral ID Status Reason Start Date Expiration Date Visits Re quested Visits Authorized [id number] Closed 03/21/2024 03/21/2025 1 1 Reason for Visit * Outpatient (Routine) - Closed Specialty Diagnoses / Procedures Referred By Contac t Referred To Contact Diagnoses Kidney And Ureter Disorder Procedures DX Chest AP or PA and Lateral 2 Views Magda Farrar M.D. 200 [place] [address] [facility] Referral ID Status Reason Start Date Expiration Date Visits Re quested Visits Authorized [id number] Closed 03/21/2024 03/21/2025 1 1 Encounter Details Date Type Department Care Team (Late st Contact Info) Description 04/19/2024 3:10 PM CDT - 04/19/2024 3:18 PM CDT Hospital Encounter Department of Radiology, [facility], in [place], [place] [address] [place] [address] Magda Farrar M.D. 200 [place] [address] Kidney And Ureter Disorder Discharge Disposition: Home [...] often do you attend chur ch or tenriism services? More than 4 times per year [...] Answer Date Recorded PHQ-2 Score 0 07/14/2023 [facility] of Occupat ional Health - Occupational Stress [...] AM CDT Clinical Communication Virtual Review in [place], [place] 200 [place] [address] 07/27/2024 1:00 PM CDT Comprehensive Visit Division of Endocrinology in [address] [phone] Darlin Back M.D., M.S. [address] [place] [phone] documented as of this encounter Procedures Procedure Name Priority Date/Time Associated Diagnosis Comments DX CHEST AP OR PA AND LATERAL 2 VIEWS RAD - Routine (most inpatients and all outpatients) 04/19/2024 3:17 PM CDT Kidney And Ureter Disorder documented in this encounter Results * DX Chest AP or PA and [...] Farrar M.D. IMG DIAGNOSTIC IM AGING PROCEDURES documented in this encounter Visit Diagnoses Diagnosis Kidney And Ureter Disorder documented in this encounter Care Teams Spring Manufacturing Set Up Technician Relationship Specialty Start Date End Date Elsewhere, Pcp PCP - General Family Medicine 04/19/24 documented as of this encounter
--- OUTSIDE RECORDS SUMMARY | 2024-06-20 01:01 | XMS_ITS | Encounter Summary ---
Author Organization [facility] Address [address] [place] [address] Care Team Providers Care Pouncing Machine Operator Name Role Phone Elsewhere, Pcp Primary Care Provider Unavailabl e Encounter Details Date Type Department Care Team (Late st Contact Info) Description 12/28/2006 Historical Ophthalmology RST OPH Klaudia Albarado M.D. [address] [place] [address] Social History Tobacco Use Types Packs/Day Years Used Date Smoking Tobacco: Never Assessed Sex and Gender Information Value Date Recorded Sex Assigned at Not on file Gender Identity Not on file Sexual Orientation Not on file documented as of this encounter Progress Notes * Klaudia Albarado M.D. - 12/28/2006 9:31 AM CDT Eye General CHIEF COMPLAINT Macular degeneration. HISTORY OF PRESENT ILLNESS Patient notes that she was diagnose with macular degeneration some time ago, however, the staking engineer told her it was more peripheral. During a recent exam she was told it was more central. Here for a second opinion. Patient denies vision complaints. Denies pain, flashes. Notes occasional floaters,however, wonders if this navneet foreign bodies on the cornea. IMPRESSION / REPORT / PLAN #1 Drusen OU #2 Cataract, both eyes Mild Plan: AREDS; amsler Observe; f/u in 1 year DIAGNOSIS #1 Drusen OU #2 Cataract, both eyes CDM Reports - EYEGEN Id: [id number] Status: Fnl documented in this encounter Plan of Treatment Upcoming Encounters Date Type Department Care Team (Latest Contact Info) Description 07/26/2024 10:00 AM CDT Clinical Communication Virtual Review in [place], [place] 200 [place] [phone] 07/27/2024 1:00 PM CDT Comprehensive Visit Division of Endocrinology in [place], [place] [address] [place] [phone] Darlin Back M.D., M.S. [address] [place] [phone] documented as of this encounter Visit Diagnoses Not on filedocumented in this encounter Care Teams Pouncing Machine Operator Relationship Specialty Start Date End Date Elsewhere, Pcp PCP - General Family Medicine 04/19/24 documented as of this encounter
--- OUTSIDE RECORDS SUMMARY | 2024-06-20 01:01 | XMS_ITS | Encounter Summary ---
Author Organization [facility] Address [address] [place] [address] Care Team Providers Care Commercial Food Instructor Name Role Phone Elsewhere, Pcp Primary Care Provider Unavailabl e Encounter Details Date Type Department Care Team (Late st Contact Info) Description 04/11/2008 Historical Ophthalmology RST OPH Klaudia Albarado M.D. [address] [place] [address] Social History Tobacco Use Types Packs/Day Years Used Date Smoking Tobacco: Never Assessed Sex and Gender Information Value Date Recorded Sex Assigned at Not on file Gender Identity Not on file Sexual Orientation Not on file documented as of this encounter Progress Notes * Klaudia Albarado M.D. - 04/11/2008 10:05 AM CDT Eye General CHIEF COMPLAINT Drusen both eyes HISTORY OF PRESENT ILLNESS Patient returns for a yearly recheck, drusen both eyes. Denies flashing lights. Floaters, both eyes, for several years, intermittently. Patient denies ocular pain. No changes in vision. No concerns today. IMPRESSION / REPORT / PLAN #1 Drusen OU #2 Cataract, both eyes Mild Plan: AREDS; melissa Observe; f/u in [address] Alfaro in [place] DIAGNOSIS #1 Drusen OU #2 Cataract, both eyes CDM Reports - EYEGEN Id: [id number] Status: Fnl documented in this encounter Plan of Treatment Upcoming Encounters Date Type Department Care Team (Latest Contact Info) Description 07/26/2024 10:00 AM CDT Clinical Communication Virtual Review in [place], [place] 200 [place] [address] 07/27/2024 1:00 PM CDT Comprehensive Visit Division of Endocrinology in [place], [place] [address] [place] [phone] Darlin Back M.D., M.S. [address] [place] [phone] documented as of this encounter Visit Diagnoses Not on filedocumented in this encounter Care Teams Commercial Food Instructor Relationship Specialty Start Date End Date Elsewhere, Pcp PCP - General Family Medicine 04/19/24 documented as of this encounter
--- OUTSIDE RECORDS SUMMARY | 2024-06-20 01:01 | XMS_ITS | Encounter Summary ---
Author Organization [facility] Address [address] [place] [address] Care Team Providers Care Frickertron Checker Name Role Phone Elsewhere, Pcp Primary Care Provider Unavailabl e Encounter Details Date Type Department Care Team (Late st Contact Info) Description 04/19/2024 2:50 PM CDT - 04/19/2024 3:09 PM CDT Hospital Encounter Department of Laboratory Medicine and Pathology, [facility] in [place], [place] [address] [place] [address] Magda Farrar M.D. [address] [place] [phone] Kidney And Ureter Disorder Discharge Disposition: Home [...] often do you attend chur ch or oriental orthodox services? More than 4 times per year [...] Answer Date Recorded PHQ-2 Score 0 07/14/2023 [facility] - Occupational Stress Questionnaire Answer Date Recorded [...] AM CDT Clinical Communication Virtual Review in [place], [place] 200 [place] [address] 07/27/2024 1:00 PM CDT Comprehensive Visit Division of Endocrinology in [address] [address] Darlin Back M.D., M.S. [address] [place] [phone] documented as of this encounter Procedures Procedure Name Priority Date/Time Associated Diagnosis Comments ALANINE AMINOTRANSFERASE (ALT), S/P Routine 04/19/2024 3:03 PM CDT Kidney And Ureter Disorder ASPARTATE AMINOTRANSFERASE (AST), S/P Routine 04/19/2024 3:03 PM CDT Kidney And Ureter Disorder ALKALINE PHOSPHATASE, S/P Routine 04/19/2024 3:03 PM CDT Kidney And Ureter Disorder documented in this encounter Results * Alkaline Phosphatase (04/19/2024 3:03 PM CDT) Alkaline Phosphatase, S 67 35 - 104 U/L 04/19/2024 3:54 PM CDT DTL Blood (Blood, Venous) 04/19/2024 3:03 PM CDT 04/19/2024 3:36 PM CDT Magda Farrar M.D. LAB BLOOD ADD-ON [facility] [address] [place] [address] * ALT (Alanine Aminotransferase) (04/19/2024 3:03 PM CDT) Alanine Aminotransferase (ALT), S 20 7 - 45 U/L 04/19/2024 3:54 PM CDT DTL Blood (Blood, Venous) 04/19/2024 3:03 PM CDT 04/19/2024 3:36 PM CDT Magda Farrar M.D. LAB BLOOD ADD-ON [facility] [address] [place] [address] * AST (Aspartate Aminotransferase) (04/19/2024 3:03 PM CDT) Aspartate Aminotransferase (AST), S 18 8 - 43 U/L 04/19/2024 3:54 PM CDT DTL Blood (Blood, Venous) 04/19/2024 3:03 PM CDT 04/19/2024 3:36 PM CDT Magda Farrar M.D. LAB BLOOD ADD-ON [place] [address] [place] [address], [facility] [address] [place] [address] documented in this encounter Visit Diagnoses Diagnosis Kidney And Ureter Disorder documented in this encounter Care Teams Frickertron Checker Relationship Specialty Start Date End Date Elsewhere, Pcp PCP - General Family Medicine 04/19/24 documented as of this encounter
--- OUTSIDE RECORDS SUMMARY | 2024-06-20 01:01 | XMS_ITS | Encounter Summary ---
Author Organization [facility] Address [address] [place] [address] Care Team Providers Care Chute Loader Name Role Phone Elsewhere, Pcp Primary Care Provider Unavailabl e Reason for Referral * MRI/CAT/PET Scan (Routine) - Closed Specialty Diagnoses / Procedures Referred By Medhat t Referred To Contact Radiology Diagnoses Kidney And Ureter Disorder Procedures CT Abdomen without and with IV Contrast and Pelvis with IV Con CT Abdomen Pelvis with IV Contrast Magda Farrar M.D. 200 [place] [address] [facility] Referral ID Status Reason Start Date Expiration Date Visits Re quested Visits Authorized [id number] Closed 04/19/2024 05/19/2024 1 1 * Outpatient (Routine) - Closed Specialty Diagnoses / Procedures Referred By Contac t Referred To Contact Diagnoses Kidney And Ureter Disorder Procedures DX Chest AP or PA and Lateral 2 Views Magda Farrar M.D. 200 [place] [address] [facility] Referral ID Status Reason Start Date Expiration Date Visits Re quested Visits Authorized [id number] Closed 03/21/2024 03/21/2025 1 1 Encounter Details Date Type Department Care Team ([facility] st Contact Info) Description 03/21/2024 Clinical Communication Department of Urology in [place], [place] 200 [place] [phone] Gilberto Flynn M.D. 200 [place] [address] Social History Tobacco Use Types Packs/Day Years Used Date Smoking Tobacco: Never Smokeless Tobacco: Never Alcohol Use Standard Drinks/Week Comments Yes 1 [...] often do you attend chur ch or scientology services? More than 4 times per year [...] Answer Date Recorded PHQ-2 Score 0 07/14/2023 [facility] Occupat ional [facility] - Occupational Stress [...] AM CDT Clinical Communication Virtual Review in [place], [place] 200 [place] [address] 07/27/2024 1:00 PM CDT Comprehensive Visit Division of Endocrinology in [place], [place] [address] [place] [phone] Darlin Back M.D., M.S. [address] [place] [phone] documented as of this encounter Results * CT Abdomen without [...] ultrasound. Nosuspicious renal masses. Magda Farrar M.D. IMG CT PROCEDURES * DX Chest AP or [...] M.D. IMG DIAGNOSTIC IM AGING PROCEDURES * Alkaline Phosphatase (04/19/2024 3:03 PM CDT) Alkaline Phosphatase, S 67 35 - 104 U/L 04/19/2024 3:54 PM CDT DTL Blood (Blood, Venous) 04/19/2024 3:03 PM CDT 04/19/2024 3:36 PM CDT Magda J Kensington M.D. LAB BLOOD ADD-ON Performing Organization Address City/[facility] Co de Phone Number [facility] 200 [place] [address], [facility] 200 [place] [address] * ALT (Alanine Aminotransferase) (04/19/2024 3:03 PM CDT) Alanine Aminotransferase (ALT), S 20 7 - 45 U/L 04/19/2024 3:54 PM CDT DTL Blood (Blood, Venous) 04/19/2024 3:03 PM CDT 04/19/2024 3:36 PM CDT Magda Farrar M.D. LAB BLOOD ADD-ON Performing Organization Address City/[facility]/ZIP Co de Phone Number [facility] 200 [place] [address], [facility] 200 [place] [address] * AST (Aspartate Aminotransferase) (04/19/2024 3:03 PM CDT) Aspartate Aminotransferase (AST), S 18 8 - 43 U/L 04/19/2024 3:54 PM CDT DTL Blood (Blood, Venous) 04/19/2024 3:03 PM CDT 04/19/2024 3:36 PM CDT Magda Farrar M.D. 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
[2024-06-20 01:02] LABS: Basophils Absolute Auto 0.04 K/uL (0.00-0.30); Basophils Percent Auto 0.7 % (0.0-3.0); Eosinophils Absolute Auto 0.22 K/uL (0.00-0.50); Hematocrit 41.1 % (33.0-51.0); Hemoglobin* 13.6 gm/dL (12.0-16.0); Immature Granulocytes Abs Auto 0.04 K/uL (0.00-0.30); Immature Granulocytes Pct Auto 0.7 %; Lymphocytes Absolute Auto 1.95 K/uL (0.90-2.90); Lymphocytes Percent Auto 35.6 % (20-44); Mean Corpuscular HGB Conc 33 gm/dL (32-36); Mean Corpuscular Hemoglobin 30 pg (26-34); Mean Corpuscular Volume 91 fL (80-100); Monocytes Percent Auto 10.2 % (0.0-11.0); Neutrophils Absolute Auto 2.67 K/uL (1.7-7.0); Neutrophils Percent Auto 48.8 % (42.0-72.0); Platelet Count* 244 K/uL (140-440); Red Blood Count 4.54 m/uL (4.00-5.20); Slide Review Reflex No; White Blood Count* 5.48 K/uL (4.50-11.00)
[2024-06-20 01:10] LABS: Troponin, Point-of-Care* 0.01 ng/ml (0.01-0.04)
[2024-06-20 01:13] LABS: Chloride* 101 mmol/L (96-114); Sodium* 136 mmol/L (135-149)
[2024-06-20 01:14] LABS: Potassium* 3.9 mmol/L (3.6-5.1)
[2024-06-20 01:16] LABS: Anion Gap 8 mEq/L (7-15); Blood Urea Nitrogen* 19 mg/dL (7-30); Carbon Dioxide* 27 mmol/L (20-32); Creatinine* 0.7 mg/dL (0.5-1.5); Est. Creatinine Clearance* 45.85; Estimated Glomerular Filt Rate 94 ml/min
[2024-06-20 01:17] LABS: Calcium* 9.5 mg/dL (8.4-10.6); Glucose* 107 mg/dL (60-115)
[2024-06-20 01:52] VITALS: BP 175/78; PULSE 80; RESP 18; TEMP 36.6; O2SAT 98
[2024-06-20 01:53] VITALS: BP 175/78; PULSE 80; RESP 18; TEMP 36.6
== END 2024-06-20 01:53 | disposition home or self-care (01) ==
PROVIDERS: Emergency Provider Family Medicine; PCP Family Medicine
DX: I49.3 Ventricular premature depolarization (principal)
CPT/HCPCS: 36415; 80048; 84484; 85025; 93005; 99284

== ENCOUNTER 2024-07-01 07:59 | Day surgery (SDC) | payer BC, SELFPAY ==
[2024-07-01] VITALS (14 sets, daily range): BP systolic 125–165; BP diastolic 67–79; PULSE 42–62; RESP 14–20; TEMP 36.2–36.6; O2SAT 92–98; BMI 27.7
--- OUTSIDE RECORDS SUMMARY | 2024-07-01 08:03 | XMS_ITS | Referral Summary ---
Author Organization [facility] Address [address] [place] [address] Care Team Providers Care Performance Manager Name Role Phone Elsewhere, Pcp Primary Care Provider Unavailabl e Source Comments Patient records contain information from all sites at [facility]. For routine questions regarding patient records, call [phone] during business hours, M-F 8:00 AM - 5:00 PM Central Time. Record requests for emergency care only can be directed to [phone] at any time.[facility] Encounters Date Type Department Care Team Description 04/22/2024 1:45 PM CDT Comprehensive Visit Department of Urology in [address] [phone] Tawny Mcnulty, BELINDAS, P.A.-C. Kidney And Ureter Disorder (Primary Dx) 04/19/2024 1:45 PM CDT Clinical Communication Virtual Review in [address] [phone] Pre-visit Intake 04/19/2024 2:50 PM CDT - 04/19/2024 3:09 PM CDT Hospital Encounter Department of Laboratory Medicine and Pathology, [facility] in [address] [address] Magda Farrar M.D. Kidney And Ureter Disorder Discharge Disposition: Home or Self Care 04/19/2024 3:10 PM CDT - 04/19/2024 3:18 PM CDT Hospital Encounter Department of Radiology, [facility], in [address] [place] [address] Magda Farrar M.D. Kidney And Ureter Disorder Discharge Disposition: Home or Self Care 04/19/2024 3:19 PM CDT - 04/19/2024 11:59 PM CDT Hospital Encounter Department of Radiology, [facility], in [place], [place] [address] [place] [address] Magda Farrar M.D. Kidney And Ureter Disorder Discharge Disposition: Home or Self Care from Last 3 Months Allergies Active Allergy [...] often do you attend chur ch or islam services? More than 4 times per year [...] Answer Date Recorded PHQ-2 Score 0 07/14/2023 [facility] Occupat ional Health - [...] 36.1 ??C (97 ??F) 08/17/2023 10:46 AM TIMBER HARVESTER OPERATOR Respiratory Rate 20 07/21/2023 2:35 PM CDT Oxygen Saturation 100% 07/06/2020 3:35 PM CDT Inhaled Oxygen Concentration - - Weight 74.2 kg (163 lb 9.3 oz) 02/17/2024 8:10 A M CDT Height 165.5 cm (5' 5.16) 08/17/2023 10:46 AM C Body Mass Index 27.09 08/17/2023 10:46 AM TIMBER HARVESTER OPERATOR Plan of Treatment Upcoming Encounters Date Type Department Care Team (Latest Contact Info) Description 07/26/2024 10:00 AM CDT Clinical Communication Virtual Review in [place], [place] 200 [place] [address] 07/27/2024 1:00 PM CDT Comprehensive Visit Division of Endocrinology in [address] [address] Darlin Back M.D., M.S. [address] [place] [phone] Procedures Procedure Name Priority Date/Time Associated Diagnosis [...] METABOLIC PANEL, S/P Routine 08/14/2023 8:23 AM TIMBER HARVESTER OPERATOR Hypertension Essential Primary LIPID PANEL, S Routine [...] The lung bases are clear. Procedure Note Ayanna, Lekui, M.D. - 04/20/2024 EXAM: CT ABDOMEN WITHOUT [...] M.D. LAB BLOOD ADD-ON Performing Organization Address City/[facility]/ZIP Co de Phone Number [facility] 200 [place] [address] * AST (Aspartate Aminotransferase) (04/19/2024 3:03 PM CDT) Aspartate Aminotransferase (AST), S 18 8 - 43 U/L 04/19/2024 3:54 PM CDT DTL Blood (Blood, Venous) 04/19/2024 3:03 PM CDT 04/19/2024 3:36 PM CDT Magda Farrar M.D. LAB BLOOD ADD-ON Performing Organization Address City/[facility]/ZIP Co de Phone Number [facility] 200 [place] [address] * Alkaline Phosphatase (04/19/2024 3:03 PM CDT) Alkaline Phosphatase, S 67 35 - 104 U/L 04/19/2024 3:54 PM CDT DTL Blood (Blood, Venous) 04/19/2024 3:03 PM CDT 04/19/2024 3:36 PM CDT Magda J Brooklyn M.D. LAB BLOOD ADD-ON [facility] [address] [place] [address], [place] DTL [facility] [address] [place] [address] * (ABNORMAL) Basic Metabolic Panel (08/14/2023 8:23 AM TIMBER HARVESTER OPERATOR) Potassium, P 4.3 3.6 - 5.2 mmol/L 08/14/2023 10:51 AM TIMBER HARVESTER OPERATOR OWAT Sodium, P 139 135 - 145 mmol/L 08/14/2023 10:51 AM TIMBER HARVESTER OPERATOR OWAT Chloride, P 103 98 - 107 mmol/L 08/14/2023 10:51 AM TIMBER HARVESTER OPERATOR OWAT Bicarbonate, P 21(L) 22 - 29 mmol/L 08/14/2023 10:50 AM TIMBER HARVESTER OPERATOR OWAT Anion Gap, P 15 7 - 15 08/14/2023 10:51 AM TIMBER HARVESTER OPERATOR OWAT BUN (Blood Urea Nitrogen), P 14 6 - 21 mg/dL 08/14/2023 10:50 AM TIMBER HARVESTER OPERATOR OWAT Creatinine 0.71 0.59 - 1.04 mg/dL 08/14/2023 10:50 AM TIMBER HARVESTER OPERATOR OWAT Estimated GFR (eGFR) >90 >=60 mL/min/BSA 08/14/2023 10:50 AM TIMBER HARVESTER OPERATOR OWAT Comment: Estimated GFR calculated using the 2020 CKD_EPI creatinine equation. Calcium, Total, P 9.2 8.8 - 10.2 mg/dL 08/14/2023 10:50 AM TIMBER HARVESTER OPERATOR OWAT Glucose, P 99 70 - 140 mg/dL 08/14/2023 10:50 AM TIMBER HARVESTER OPERATOR OWAT Blood (Blood, Venous) 08/14/2023 8:23 AM TIMBER HARVESTER OPERATOR 08/14/2023 8:36 AM TIMBER HARVESTER OPERATOR Estrella Garza APRN C.N.P., D.N.P. LAB BLOOD ADD-ON [facility] [address] [place] [address], [place] OWAT [facility] in [place] [address] [place] [address] * (ABNORMAL) Lipid Panel (07/10/2023 10:42 AM [...] CDT Jaquelin Sher M.D. LAB BLOOD ADD-ON [facility] [address] [place] [address], [facility] OWAT [facility] [place] [address] [address] from Last 3 Months or Most Recently Relevant to Health Maintenance Care Teams Performance Manager Relationship Specialty Start Date End Date Elsewhere, Pcp PCP - General Family Medicine 04/19/24
--- OUTSIDE RECORDS SUMMARY | 2024-07-01 08:03 | XMS_ITS ---
Author Organization [facility] Address [address] [place] [address] Care Team Providers Care Synthetic Gem Press Operator Name Role Phone Unavailable Unavailable Unavailable Surgery Details Not on file Complications Check Surgery Details section. Procedure Estimated Blood Loss Check Surgery Details section. Procedure Findings Check Surgery Details section. Procedure Specimens Taken Check Surgery Details section.
--- OUTSIDE RECORDS SUMMARY | 2024-07-01 08:03 | XMS_ITS | Clinical Summary ---
Author Organization [facility] Address [address] [place] [address]. [place] [address] Care Team Providers Care Automobile Assembly Supervisor Name Role Phone Rufino Perrin MD Primary Care Provider [phone] Family History Medical History Relation Comments Colon [...] Recently Relevant to Health Maintenance Care Teams Automobile Assembly Supervisor Relationship Specialty Start Date End Date Rufino Perrin MD [address] [phone] PCP - General air grinder 12/06/13
--- OUTSIDE RECORDS SUMMARY | 2024-07-01 08:03 | XMS_ITS | Encounter Summary ---
Author Organization [facility] Address [address] [place] [address] Care Team Providers Care Farmworker Livestock Name Role Phone Elsewhere, Pcp Primary Care Provider Unavailabl e Reason for Visit * Reason Onset Date Comments Pre-visit Intake 04/19/2024 Encounter Details Date Type Department Care Team (Latest Contact Info) Description 04/19/2024 1:45 PM CDT Clinical Communication Virtual Review in [place], [place] 200 [place] [address] Pre-visit Intake Social History Tobacco Use Types [...] often do you attend chur ch or baptist services? More than 4 times per year [...] Answer Date Recorded PHQ-2 Score 0 07/14/2023 [facility] Occupat ional Health - Occupational [...] AM CDT Clinical Communication Virtual Review in [place], [place] [address] [place] [address] 07/27/2024 1:00 PM CDT Comprehensive Visit Division of Endocrinology in [place], [place] [address] [place] [phone] Darlin Back M.D., M.S. [address] [place] [phone] documented as of this encounter Visit Diagnoses Not on filedocumented in this encounter Care Teams Farmworker Livestock Relationship Specialty Start Date End Date Elsewhere, Pcp PCP - General Family Medicine 04/19/24 documented as of this encounter
--- OUTSIDE RECORDS SUMMARY | 2024-07-01 08:03 | XMS_ITS | Encounter Summary ---
Author Organization [facility] Address [address] [place] [address] Care Team Providers Care Inventory Control Associate Name Role Phone Elsewhere, Pcp Primary Care Provider Unavailabl e Reason for Referral * Outpatient (Routine) - Authorized Specialty Diagnoses / Procedures Referred By Contac t Referred To Contact Urology Tawny Mcnulty MPAS, P.A.-CLuis Fernando [address] [place] [phone] Gilberto Flynn M.D. [address] [place] [phone] Referral ID Status Reason Start Date Expiration Date V isits Requested Visits Authorized [id number] Authorized 04/22/2024 10/22/2025 1 1 * MRI/CAT/PET Scan (Routine) - Pending Review Specialty Diagnoses / Procedures Referred By Contac t Referred To Contact Radiology Diagnoses Kidney And Ureter Disorder Procedures CT Abdomen Pelvis without and with IV Contrast Tawny Mcnulty MPAS, P.A.-C. [address] [place] [phone] [facility] Referral ID Status Reason Start Date Expiration Date V isits Requested Visits Authorized [id number] Pending Review 04/22/2024 04/22/2025 1 1 Reason for Visit * Appointment Request (Routine) - Closed Specialty Diagnoses / Procedures Referred By Medhat reeves Referred To Contact Urology Diagnoses Angiomyolipoma Kidney Right Vesna Kennedy M.D. [address] [place] [address] Referral ID Status Reason Start Date Expiration Date Visits Re quested Visits Authorized [id number] Closed 03/18/2024 03/18/2025 1 1 Encounter Details Date Type Department Care Team (Late st Contact Info) Description 04/22/2024 1:45 PM CDT Comprehensive Visit Department of Urology in [place], [place] [address] [place] [address] Tawny Mcnulty MPAS, P.A.-C. [address] [place] [address] Kidney And Ureter Disorder (Primary Dx) Social [...] often do you attend chur ch or congregational services? More than 4 times per year [...] Recorded PHQ-2 Score 0 07/14/2023 [facility] of Occupat ional Health - [...] AM CDT Clinical Communication Virtual Review in [place], [place] 200 [place] [address] 07/27/2024 1:00 PM CDT Comprehensive Visit Division of Endocrinology in [place], [place] [address] [place] [phone] Darlin Back M.D., M.S. [address] [place] [phone] Scheduled Orders Name Type Priority Associated Diagnoses [...] Primary documented in this encounter Care Teams Inventory Control Associate Relationship Specialty Start Date End Date Elsewhere, Pcp PCP - General Family Medicine 04/19/24 documented as of this encounter
--- OUTSIDE RECORDS SUMMARY | 2024-07-01 08:03 | XMS_ITS | Clinical Summary ---
Author Organization [facility] Address [address] [place] [address] Care Team Providers Care Awning Assembler Name Role Phone Elsewhere, Pcp Primary Care Provider Unavailabl e Source Comments Patient records contain information from all sites at [facility]. For routine questions regarding patient records, call [phone] during business hours, M-F 8:00 AM - 5:00 PM Central Time. Record requests for emergency care only can be directed to [phone] at any time.[facility] Allergies Active Allergy Reactions Criticality Noted Date [...] CDT Comprehensive Visit Department of Urology in [address] [phone] Tawny Mcnulty, JEANNE, P.A.-C. Kidney And Ureter Disorder (Primary Dx) 04/19/2024 3:19 PM CDT - 04/19/2024 11:59 PM CDT Hospital Encounter Department of Radiology, [facility] in [place], [place] [address] [place] [phone] Magda Farrar M.D. Kidney And Ureter Disorder Discharge Disposition: Home or Self Care 04/19/2024 3:10 PM CDT - 04/19/2024 3:18 PM CDT Hospital Encounter Department of Radiology, [facility] in [place], [place] [address] [place] [phone] Magda Farrar M.D. Kidney And Ureter Disorder Discharge Disposition: Home or Self Care 04/19/2024 2:50 PM CDT - 04/19/2024 3:09 PM CDT Hospital Encounter Department of Laboratory Medicine and Pathology, [facility] in [place], [place] [address] [place] [phone] Magda Farrar M.D. Kidney And Ureter Disorder Discharge Disposition: Home or Self Care 04/19/2024 1:45 PM CDT Clinical Communication Virtual Review in [place], [place] [address] [place] [address] Pre-visit Intake from Last 3 Months Immunizations Name Administration [...] file 07/05/2020 How often do you attend [facility] or sikh services? More than 4 times per year [...] Answer Date Recorded PHQ-2 Score 0 07/14/2023 [facility] - Occupational Stress Questionnaire Answer Date Recorded [...] 36.1 ??C (97 ??F) 08/17/2023 10:46 AM PREASSEMBLER PRINTED CIRCUIT BOARD Respiratory Rate 20 07/21/2023 2:35 PM CDT Oxygen Saturation 100% 07/06/2020 3:35 PM CDT Inhaled Oxygen Concentration - - Weight 74.2 kg (163 lb 9.3 oz) 02/17/2024 8:10 A M CDT Height 165.5 cm (5' 5.16) 08/17/2023 10:[address] Body Mass Index 27.09 08/17/2023 10:46 AM PREASSEMBLER PRINTED CIRCUIT BOARD Plan of Treatment Upcoming Encounters Date Type Department Care Team (Latest Contact Info) Description 07/26/2024 10:00 AM CDT Clinical Communication Virtual Review in [place], [place] [address] [place] [address] 07/27/2024 1:00 PM CDT Comprehensive Visit Division of Endocrinology in [place], [place] [address] [place] [phone] Darlin Back M.D., M.S. [address] [place] [phone] Health Maintenance Due Date Last Done Comments Bone Density Scan (Osteoporo sis Screen) 1954 CT Colonography 1954 Cologuard 1954 FIT 1954 Hepatitis C Screening 1955 Pneumococcal vaccine (65+ ye ars) (2 of 2 - PCV) 05/01/2021 05/01/2020 Depression Screening (Annual PHQ-2) 09/28/2023 Fall Risk Screen (Annual) 09/28/2023 Office Visit for Blood Press ure Check / Re-check 05/19/2024 02/17/2024 COVID-19 Vaccine (3 - 2023-2 5 season) 2024 10/16/2020, 09/25/2020 Influenza Vaccine (#1) 2024 2, 07/23/2021, 08/17/2020, Additional history exists Mammogram 07/28/2024 [...] 01/18/2024, Additional history exists Colonoscopy 07/06/2030 07/06/2020, 10/0 05/2020, 06/26/2015, Additional history exists Colorectal Cancer [...] METABOLIC PANEL, S/P Routine 08/14/2023 8:23 AM PREASSEMBLER [employer] BOARD Hypertension Essential Primary LIPID PANEL, S Routine [...] M.D. LAB BLOOD ADD-ON Performing Organization Address City/[facility]/ZIP Co de Phone Number [facility] [address] 200 [place] [address] * AST (Aspartate Aminotransferase) (04/19/2024 3:03 PM CDT) Aspartate Aminotransferase (AST), S 18 8 - 43 U/L 04/19/2024 3:54 PM CDT DTL Blood (Blood, Venous) 04/19/2024 3:03 PM CDT 04/19/2024 3:36 PM CDT Magda Frarar M.D. LAB BLOOD ADD-ON [facility] [address] [place] [address], [place] [address] * Alkaline Phosphatase (04/19/2024 3:03 PM CDT) Alkaline Phosphatase, S 67 35 - 104 U/L 04/19/2024 3:54 PM CDT DTL Blood (Blood, Venous) 04/19/2024 3:03 PM CDT 04/19/2024 3:36 PM CDT Magda Farrar M.D. LAB BLOOD ADD-ON [facility] [address] [place] [address], [facility] [address] [place] [address] * (ABNORMAL) Basic Metabolic Panel (08/14/2023 8:23 AM PREASSEMBLER [employer] BOARD) Potassium, P 4.3 3.6 - 5.2 mmol/L 08/14/2023 10:51 AM [employer]ASSEMBLER [employer] OWAT Sodium, P 139 135 - 145 mmol/L 08/14/2023 10:51 AM [employer]ASSEM[employer]ER [employer] OWAT Chloride, P 103 98 - 107 mmol/L 08/14/2023 10:51 AM [employer] OWAT Bicarbonate, P 21(L) 22 - 29 mmol/L 08/14/2023 10:50 AM [employer]SEM[employer] OWAT Anion Gap, P 15 7 - 15 08/14/2023 10:51 AM [employer]SEM[employer] OWAT BUN (Blood Urea Nitrogen), P 14 6 - 21 mg/dL 08/14/2023 10:50 AM [employer]SEM[employer] OWAT Creatinine 0.71 0.59 - 1.04 mg/dL 08/14/2023 10:50 AM PREASSEMBLER [employer] OWAT Estimated GFR (eGFR) >90 >=60 mL/min/BSA 08/14/2023 10:50 AM PREASSEMBLER [employer] OWAT Comment: Estimated GFR calculated using the 2020 CKD_EPI creatinine equation. Calcium, Total, P 9.2 8.8 - 10.2 mg/dL 08/14/2023 10:50 AM PREASSEMBLER [employer] OWAT Glucose, P 99 70 - 140 mg/dL 08/14/2023 10:50 AM [employer]ASSEM[employer]ER [employer] OWAT Blood (Blood, Venous) 08/14/2023 8:23 AM PREASSEMBLER [employer] BOARD 08/14/2023 8:36 AM PREASSEMBLER [employer]ARD Estrella Garza APRN, C.N.P., D.N.P. LAB BLOOD ADD-ON [facility] [address] [place] [address], [facility] OWAT [facility] [place] [address] [place] [address] * (ABNORMAL) Lipid Panel (07/10/2023 10:42 AM [...] CDT Jaquelin Sher M.D. LAB BLOOD ADD-ON [facility] [address] [place] [address], [place] OWAT [facility] [place] [address] [place] [address] from Last 3 Months or Most Recently Relevant to Health Maintenance Care Teams Awning Assembler Relationship Specialty Start Date End Date Elsewhere, Pcp PCP - General Family Medicine 04/19/24
--- OUTSIDE RECORDS SUMMARY | 2024-07-01 08:03 | XMS_ITS | Clinical Summary ---
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 Medications Medication Sig Dispensed Refills Start Date End Date Status calcium carbonate-cholecalc iferol, 600mg-200 units, (CALCIUM 600 + D,3,) 600 mg(1,500mg) -200 unit tablet Take 1 tablet by mouth 2 times daily with meals. 0 02/11/2011 Active SYNTHROID 75 mcg tablet Take 1 tablet by mouth once daily. 90 tablet 3 05/08/2020 Active fish oil-omega-3 fatty acids 300-1,000 mg Take 1 g by mouth. Acti ve vit A/vit C/vit E/zinc/copper (PRESERVISION AREDS ORAL) PreserVision AREDS Active vitamin B complex-folic acid (B Complex 1, with folic acid,) 0.4 mg tab tablet Take 1 Tablet by mouth once daily. 0 08/04/2023 Active magnesium oxide 200 mg magnesium chew Chew by mouth. 0 08/04/2023 Act chloe LORazepam (ATIVAN) 0.5 mg tabIndications:Orin re anxiety Take 1 Tablet (0.5 mg) by mouth every 6 hours if needed for Anxiety (panic). 5 Tablet 02/03/2024 Active carvediloL (COREG) 6.25 mg tablet Take 6.25 mg by mouth two times daily with meals. 03/01/2024 Active olmesartan (BENICAR) 40 mg tabletIndications:H ypertension, unspecified type Take 1 Tablet (40 mg) by mouth once daily. 90 Tablet 2 05/23/2024 Active amLODIPine (NORVASC) 2.5 mg tabletIndications:H TN (hypertension) Take 1 Tablet (2.5 mg) by mouth once daily. 90 Tablet 06/16/2024 Active Active Problems Problem Noted Date Diagnosed Date Spider veins 01/19/2017 Varicose vein of leg 01/19/2017 Gouty arthropathy 07/02/2012 Mixed hyperlipidemia 07/02/2012 Prediabetes 07/02/2012 VINCENZO 04/19/2012 AHI-9.9 in REM non-supine sleep, R DI-7.2 06/21/2012 Thyroiditis 05/22/2012 Overview (05/22/2012): Being seen at [place] for this. Restless leg syndrome 04/30/2012 Palpitations 03/30/2012 Bunion 09/12/2011 Overview (09/12/2011): Left great toe HTN (hypertension) 02/11/2011 Macular changes, congenital 02/11/2011 Resolved Problems Problem Noted Date Diagnosed Date Resolved Date Pericardial effusion 04/30/2012 017 Restless leg syndrome 04/30/20122011 Snoring 03/30/2012 12/11/2016 MVP (mitral valve prolapse) 02/11/2011 04/30/2012 Encounters Date Type Department Care Team Description 06/16/2024 10:25 AM CDT Preop Visit [facility] [address] [place] [address] Vesna Kennedy MD Pre-Op Exam (07/01/2024, [facility], '[place], Septoplasty) 06/16/2024 Travel 05/31/2024 Telephone [facility] [address] [place] [address] Vesna Kennedy MD Appointment (APPT REQUEST ) 05/20/2024 Refill [facility] [address] [place] [address] Vesna Kennedy MD Refill Request (Olmesartan) 04/26/2024 8:10 AM CDT Orders Only [facility] [address] [place] [phone] Lab, [facility] 04/26/2024 Travel 04/13/2024 Orders Only [facility] Scanner 1 scan: (1-Ord) [place], [place] CINUS WO CON, 04/13/2024 from Last 3 Months Immunizations Name Administration Dates Next Due COVID-19 vaccine ([employer] 30mcg/0.3mL) SILKE HERNANDEZ 10/16/2020,09/25/2020 Influenza Virus, Unspecified 07/30/2015,07/11/20 14 Influenza, [...] CDT Respiratory Rate 14 09/10/2023 9:32 AM JAIL MANAGER Oxygen Saturation 97% 06/16/2024 10:27 AM CDT Inhaled Oxygen Concentration - - Weight 73.3 kg (161 lb 9.6 oz) 06/16/2024 10:27 AM CDT Height 162.6 cm (5' 4) 06/16/2024 10:27 AM CDT Body Mass Index 27.74 06/16/2024 10:27 AM CDT Plan of Treatment Health Maintenance Due Date Last Done Comments Mammogram for age 45-75 04/06/2021 04/06/20 20 (Completed outside of [employer]), 02/23/2018 (Completed outside of [employer]), 11/26/2014, Additional history exists Pneumococcal series for age 65+ (2 of 2 - PCV) 05/01/2021 05/01/2020 COVID-19 vaccine series (3 - season) 2024 10/16/2020, 09/25/2020 Influenza for age 65+ 05/29/2024 08/04/2022 , 07/23/2021, 08/17/2020, Additional history exists Depression screening for age 12+ 09/18/2024 09/18/2023, 09/17/2023, 07/03/2022, Additional history exists BMI (ht and wt on same day) for age 18+ 06/16/2025 06/16/2024, 12/25/2023, 09/23/2023, Additional history exists Colonoscopy through age 75 07/06/202507/06 (Verified in Care Everywhere or Patient Record), 06/26/2015, 07/13/2008 (Completed outside of [employer]) Lipids for age 45-75 12/20/2028 12/21/2023, 07/03/2022, 05/31/2021, Additional history exists Tetanus booster 10/31/2030 10/31/2020, 06/09/2008, 12/13/2008 (Completed outside of [employer]) Hepatitis C screening for ag e 18-79 Completed 05/01/2020 DEXA/DXA scan for age 65+ Completed 08/21/2020 Tdap Completed 10/31/2020, 01/27 (Completed outside of [employer]), 02/26/2009 Zoster (shingles) series for age 50+ Completed 01/18/2021, 07/27/2020 Procedures Procedure Name Priority Date/Time Associated Diagnosis Comments BASIC METABOLIC PANEL Routine 06/16/2024 11:23 AM CDT HTN (hypertension) TSH Routine 04/26/2024 8:20 AM CDT Hypothyroidism (acquired) SCAN-CT INTERPRETATION 04/13/2024 12:00 AM CDT LIPID PANEL Routine 12/21/2023 8:41 AM CDT Pure hypercholesterolemia XR DXA BONE DENSITY 2 SITES AXIAL Routine 08/21/2020 9:54 AM JAIL MANAGER Menopause ANTI HCV Routine 05/01/2020 8:51 AM CDT Encounter for hepatitis C screening test for low risk patient from Last 3 Months or Most Recently Relevant to Health Maintenance Results * (ABNORMAL) BASIC METABOLIC PANEL (06/16/2024 11:23 AM CDT) GLUCOSE 90 65 - 99 mg/dL [facility] Comment: ? Fasting reference interval UREA NITROGEN [...] 11:24 AM CDT Vesna Kennedy MD CHEMISTRY [facility] [address] [place] [address], [facility] [address] [place] [phone] * TSH (04/26/2024 8:20 AM CDT) TSH 2.36 0.27 - 4.20 uIU/mL 04/26/2024 8:51 AM CDT [facility] Blood BLOOD SPECIMEN / Unknown Venipuncture / Unknown 04/26/2024 8:20 AM CDT 04/26/2024 8:21 AM CDT [facility] - 04/26/2024 8:51 AM CDT In Adults, TSH values between 5.00 and 10.00 uIU/ml do not necessarily indicate the presence of Hypothyroidism. Correlation with clinical findings such as presence of goiter and/or Thyroperoxidase (TPO) Antibody may be helpful. For more information please refer to MARIA DOLORES 2004; 291: 228-238. Vesna Kennedy MD CHEMISTRY [facility] [address] [place] [address] * SCAN-CT INTERPRETATION (04/13/2024 12:00 AM CDT) Anatomical Region Laterality Modality Other Scanner OTHER * (ABNORMAL) LIPID PANEL (12/21/2023 8:41 AM CDT) CHOLESTEROL,TOTAL 214(H) 100 - 199 mg/dL 12/21/2023 9:05 AM [facility] Comment: Cholesterol, Total Reference Ranges Desirable <200 mg/dL Borderline 200-239 mg/dL High >=240 mg/dL TRIGLYCERIDES 42 <150 mg/dL 12/21/2023 9:05 AM [facility] HDL CHOLESTEROL 83 >40 mg/dL 9:05 AM [facility] NON-HDL CHOLESTEROL 131 <145 mg/dl 12/21/2023 9:05 AM [facility] CHOL/HDL RATIO 2.58 <4.50 12/21/2023 9:05 AM [facility] LDL CHOLESTEROL 123 <=130 mg/dL 12/21/2023 9:05 AM [facility] VLDL CHOLESTEROL 8 <=30 mg/dL 12/21/2023 9:05 AM [facility] PROVIDER ORDERED STATUS RANDOM 12/21/2023 9:05 AM [facility] Blood BLOOD SPECIMEN / Unknown Venipuncture / Unknown 12/21/2023 8:41 AM CDT 12/21/2023 8:41 AM CDT Mirtha Sotomayor MD CHEMISTRY Performing Organization Address City/[facility]/ZIP Co de Phone Number [facility] [address] [place] [address] * (ABNORMAL) XR DXA BONE DENSITY 2 SITES AXIAL (08/21/2020 9:54 AM JAIL MANAGER) Anatomical Region Laterality Modality Spine, HIPS, HIPL, HIPR Other Narrative 09/04/2020 4:37 PM JAIL MANAGER Please see scanned document for results of this study. Vesna Kennedy MD DEXA * ANTI HCV (05/01/2020 8:51 AM CDT) HEPATITIS C ANTIBODY Non-React chloe Non-React chloe 05/01/2020 3:26 PM CDT [facility] Comment:Antibodies to HCV no t detected; does not exclude the possibility of exposure to HCV. Blood BLOOD SPECIMEN / Unknown Butterfly / Unknown 05/01/2020 8:51 AM CDT 05/01/2020 8:52 AM CDT Vesna Kennedy MD SEND OUTS [facility] [address] [place] [address], [place] from Last 3 Months or Most Recently Relevant to Health Maintenance Care Teams Steamboat Captain Relationship Specialty Start Date End Date Vesna Kennedy MD [address] [place] [address] PCP - General Family Practice 03/25/19
--- OUTSIDE RECORDS SUMMARY | 2024-07-01 08:03 | XMS_ITS | Data Portability ---
Author Organization [place] [facility] [employer], [id number] Address [address] [address] [place] [address] Assessment Encounter Date Assessment Date Assessment LastModified by Organization Details LastModified Time 09/10/2020 09/10/2020 Normal menopausal gynecologic examination. The patient is up-to-date on her screening tests. [email or web address] Not available 09/11/2020 09:23:31 07/14/2022 07/14/2022 Medicare breast and pelvic examination. No gynecologic pathology noted. Not available 07/15/2022 18:54:19 07/27/2023 07/27/2023 Normal annual gynecologic examination. No gynecologic issues or concerns at this time. Concerns are primarily a general medical in nature including high blood pressure, abnormal lipid panel, and tinnitus. The patient is actively pursuing evaluation and treatment at this time. Not available 07/29/2023 10:13:24 Plan of Treatment Reminders Order Date Submit Date Provider Last Modified By Organization Details Last Modified Time Details Appointments None record ed. Lab None record ed. Referral None record ed. Procedures None record ed. Surgeries None record ed. Imaging None record ed. Medication Orders None record ed. Patient TargetsNo targets recorded. Patient Instructions Encounter Date Encounter Id Patient Instructions Last Modified By Organization Details Last Modified Time 09/10/2020 [id number] Continue healthy lifestyle measures. Continue blood pressure medication. Return in 1 year for annual examination. Continue healthy lifestyle and follow-up with her primary care provider. No further PAP smears are necessary. Not available 09/11/2020 09:25:18 I discussed the patient's clinical presentation and her normal examination. She is up-to-date with her routine screening test. No further Pap smears are necessary. Return in 1 year for annual Medicare breast and pelvic examination. All questions answered. - Encouraged breast self-awareness and monthly breast exams. - Recommend mammogram annually - Encouraged regular exercise. - Discussed calcium, vitamin D, and weight bearing exercise for bone health. - Discussed osteoporosis screening guidelines. - Recommend colonoscopy at recommended intervals - Encouraged patient to establish care with a PCP to manage non-THERAPEUTIC RADIOLOGIST concerns if she does not already have one. - Reviewed current cervical cancer screening guidelines. - Discussed concern with post-menopausal bleeding. Discussed common physical changes and central weight gain. We discussed when treatment is indicated for control of symptoms. Not available 09/11/2020 09:25:56 07/14/2022 [id number] Return to clinic in 1 year for annual examination. Continue follow-up with endocrinology and primary care for blood pressure and lipid management. Recheck lipids in September 2022. Colon cancer screening discussed. Not available 07/15/2022 18:55:44 I discussed with Esha her clinical presentation and findings on examination. She is a healthy postmenopausal female with a history of hypertension and elevated lipids. She voices no gynecologic issues or concerns, has had no postmenopausal bleeding, no palpable breast lumps. Bone density evaluation colon cancer screening and annual mammography recommended. No further Pap smears are necessary. - Encouraged breast self-awareness and monthly breast exams. - Recommend mammogram annually - Encouraged regular exercise. - Discussed calcium, vitamin D, and weight bearing exercise for bone health. - Discussed osteoporosis screening guidelines. - Recommend colonoscopy at recommended intervals - Encouraged patient to establish care with a PCP to manage non-THERAPEUTIC RADIOLOGIST concerns if she does not already have one. - Reviewed current cervical cancer screening guidelines. PAP smear recommendations after age 65 without a history of cervical cancer or severe dysplasia within the last 20 years discussed. - Discussed indications to call or return in the menopausal period including post menopausal bleeding Not available 07/15/2022 18:56:34 07/27/2023 [id number] Return in 1 year for an annual gynecologic examination schedule mammogram which is due at this time. Bone density in the next 3 to 5 years. No additional Pap smears are indicated. Colonoscopy discussed and recommended. Follow-up with internal medicine for abnormal lab tests and management of high blood pressure, tinnitus) may need ENT referral) and abnormal lipids call for any gynecologic issues or concerns Not available 07/29/2023 10:15:21 I discussed with Yuni her clinical presentation and findings on examination. From a gynecologic perspective she is doing well with no postmenopausal bleeding no breast abnormalities no other THERAPEUTIC RADIOLOGIST issues of concern. Her primary concerns are general medical including high blood pressure, elevated lipids, and tinnitus. She is now retired and actively pursuing her health. We discussed her recent lab tests including an elevated homocystine level elevated thyroid peroxidase antibodies or electrolyte issues. Her iron panel was normal. She will follow-up with internal medicine regarding these issues. Indications to call or return were discussed including postmenopausal bleeding or any concerning breast abnormality. - Encouraged breast self-awareness and monthly breast exams. - Recommend mammogram annually - Encouraged regular exercise. - Discussed calcium, vitamin D, and weight bearing exercise for bone health. - Discussed osteoporosis screening guidelines. - Recommend colonoscopy at recommended intervals - Encouraged patient to establish care with a PCP to manage non-THERAPEUTIC RADIOLOGIST concerns if she does not already have one. - Reviewed current cervical cancer screening guidelines. PAP smear recommendations after age 65 without a history of cervical cancer or severe dysplasia within the last 20 years discussed. - Discussed indications to call or return in the menopausal period including post menopausal bleeding Not available 07/29/2023 10:16:48 Reason for Referral None Reported. Results Created Date Observation Date Name Description Value Unit Range Abnormal Flag Note LastModifiedBy Organization Detail LastModifiedTime 06/12/20 21 06/12/2021 MAMMO , diagn ostic , tomos ynthe sis, bilat eral No observ ation record ed. tloscheider [facility] (Pulmonary Function) [address], [place], [address], 06/12/2021 19:24:42 07/04/20 22 07/04/2022 MAMMO , scree diogenes, tomos ynthe sis, bilat eral, w/ CAD No observ ation record ed. [email or web address] [facility] [address], [place], [address], 07/07/2022 09:52:27 Result Notes None recorded. Problems Name Problem SNOMED Code Status Onset Date Resolution Date Notes Provider Name and Address Organization Details Recorded Time Hypertensive disorder 73488626 Active Not Available [facility] 0 01:08:38 Problem Notes None recorded. Procedures Surgical History Date Name Laterality Status Provider Name and Address Organization Details Recorded Time 07/04/20 22 Date of Last Mammogram completed Salvadorester Elmore [facility] [employer] 07/07/2022 09:52:23 04/08/20 19 Date of Last Pap Smear completed Stephanie Cruz ([place]) [place] [facility] [employer] 09/06/2020 11:23:42 radical bunionectomy completed Not Available [facility] 05/07/2020 01:04:07 colposcopy of cervix completed Not Available [facility] 05/07/2020 01:04:07 Oral surgery procedure completed Not Available [facility] 05/07/2020 01:04:07 endocervical curettage completed Not Available [facility] 05/07/2020 01:04:07 Imaging Results Imaging Date Name Status LastModified by Organiz ation Details LastModified Time 06/12/2021 MAMMO, diagnostic, tomosynthesis, bilateral completed tloscheider [facility] (Pulmonary Function) [address] [place], [address], 06/12/2021 19:24:42 07/04/2022 MAMMO, screening, tomosynthesis, bilateral, w/ CAD completed [email or web address] [facility] [address] [place], [address], 07/07/2022 09:52:27 Procedure Notes None recorded. Medical Equipment None Reported. Allergies Allergen ID Allergen Name Allergen Category Reaction Reaction Severity Criticality Documentation Date Start Date Code Code System Note Provider Name and Address Organization Details Recorded Time 773529 Medicinal product containin g penicilli n and acting as antibacte rial agent (product) medicatio n Not available Not available Not available 05/04/2020 13642 05 SNOMED *Note : 04/08 - Rash Not Available [facility] 0 16:57:47 616364 adhesive tape environme nt,medica tion Not available Not available Not available 05/04/2020 *Note : 04/08 - Rash Not Available [facility] 0 16:57:47 352990 thimerosa l medicatio n Not available Not available Not available 05/04/2020 65266 RxNorm *Note : 04/08 - Swoll en eyes Not Available [facility] 0 16:57:47 Medications Name Sig Start Date Stop Date Status Note LastModified by Organization Details LastModified Time carvedilol 6.25 mg tablet TAKE 1 TABLET BY MOUTH TWICE A DAY WITH MEALS active Not Available Not Available No t Available doxycycline hyclate 100 mg capsule TAKE 1 CAPSULE BY MOUTH TWO TIMES DAILY FOR 7 DAYS. 03/15 completed Not Available Not Available Not Available azithromyci n 250 mg tablet 09/10 completed Not Available Not Available Not Available tizanidine 4 mg tablet TAKE 1 TABLET BY MOUTH EVERY 8 HOURS IF NEEDED FOR MUSCLE TIGHTNESS CAREFUL OF SEDATION active Not Available Not Available No t Available acetaminoph en 300 mg-codeine 30 mg tablet TAKE 1 TABLET BY MOUTH EVERY 4 HOURS IF NEEDED FOR PAIN. MAX ACETAMINO PHEN DOSE: 4000MG IN 24 HRS. 07/14 completed Not Available Not Available Not Available amlodipine 5 mg tablet TAKE 1 TABLET BY MOUTH EVERY DAY 03/15 completed Not Available Not Available Not Available spironolact one 25 mg tablet 09/10 completed Not Available Not Available Not Available lorazepam 0.5 mg tablet TAKE 1 TABLET (0.5 MG) BY MOUTH EVERY 6 HOURS IF NEEDED FOR ANXIETY (PANIC). active Not Available Not Available No t Available Synthroid 75 mcg tablet active Not Available Not Available Not Available mupirocin 2 % topical ointment active Not Available Not Available Not Available metoprolol succinate ER 25 mg tablet,exte nded release 24 hr TAKE 1.5TABLET S BY MOUTH ONCE DAILY X 5 DAYS AND THEN INCREASE TO 2 TABLETS BY MOUTH ONCE DAILY 03/15 completed Not Available Not Available Not Available lorazepam 1 mg tablet 09/10 completed Not Available Not Available Not Available olmesartan 40 mg tablet TAKE 1 TABLET BY MOUTH EVERY DAY active Not Available Not Available No t Available metoprolol tartrate 25 mg tablet TAKE 1/2 TABLET BY MOUTH EVERY DAY active Not Available Not Available No t Available calcium active Not Available Not Avail able Not Available metoprolol succinate 12.5 03/15 completed Not Available Not Available Not Available PreserVisio n AREDS active Not Available Not Available Not Available [id number] 100 gram-sod sulf 7.5 gram-NaCl-K Cl-ascorbat e-C oral pwdr pack 09/10 completed Not Available Not Available Not Available hydrochloro thiazide 12.5 mg tablet TAKE 1 TABLET BY MOUTH ONCE DAILY. 03/15 completed Not Available Not Available Not Available Vitals Date Recorded Body height Body mass index (BMI) Body weight Systolic blood pressure Diastolic blood pressure Systolic blood pressure Diastolic blood pressure Provider Name and Address Organization Details Last Updated DateTime 2 165.1 cm 27.5 kg/m2 17605.7 4 g 172 mm[Hg] 90 mm[Hg] 174 mm[Hg] 90 mm[Hg] Landy Carlisle (TERMED) [facility] [employer] 2 11:21:36 Date Recorded Body weight Body mass index (BMI) Body height Systolic blood pressure Diastolic blood pressure Provider Name and Address Organization Details Last Updated DateTime 07/27/2023 15910.56 g 27.1 kg/m2 165.1 cm 150 mm[Hg] 86 mm[Hg] Landy Carlisle (TERMED) [facility] [employer] 3 15:57:26 Date Recorded Body height Body mass index (BMI) Body weight Systolic blood pressure Diastolic blood pressure Provider Name and Address Organization Details Last Updated DateTime 03/15/2024 165.1 cm 27.3 kg/m2 96436.87 g 158 mm[Hg] 96 mm[Hg] Mireille Anderson [employer] 4 11:47:12 Date Recorded Body weight Body mass index (BMI) Body height Systolic blood pressure Diastolic blood pressure Provider Name and Address Organization Details Last Updated DateTime 09/10/2020 72682.39 g 28.1 kg/m2 165.1 cm 148 mm[Hg] 86 mm[Hg] Mireille Anderson [employer] 0 12:14:35 Social History Question Answer Notes LastModified by Organizat ion Details LastModified Time Tobacco Smoking Status Never Smoker [facility] [employer] 09/10/2020 08:37:17 What Is Your Level Of Alcohol Consumption? Occasional 1-2dr/wk Information not available 09/10/2020 What Is Your Level Of Caffeine Consumption? Occasional 0-1c/day [email or web address] Information not available 07/27/2023 Which Illicit Or Recreational Drugs Have You Used? Denies Illicit Substance Abuse Information not available 03/15/2024 Children's Names/ Morena Information not available 09/10/2020 Spouse/Partners Name Jesus [email or web address] Information not available 09/10/2020 What Is Your Relationship Status? Information not available 03/15/2024 Do You Use Any Illicit Or Recreational Drugs? No Information not available 03/15/2024 Sex: Unknown Functional Status Question Answer Note LastModified by Organizat ion Details LastModified Time What is your exercise level? Occasional Minimal Amount of Exercise (Once weekly or less) [email or web address] Information not available 05/07/2020 Mental Status None recorded. Family History Relationship Description Onset Age of this Age Resolved Age Notes LastModified by Organization Details LastModified Time Mother Benign essential hypertension Hypert ension Not available 05/07/2020 01:08:31 Mother Family history of diabetes mellitus Diabet es Not available 05/07/2020 01:08:31 Father Family history of diabetes mellitus Diabet es Not available 05/07/2020 01:08:31 Father Benign essential hypertension Hypert ension Not available 05/07/2020 01:08:31 Father Primary malignant neoplasm Upper Respir atory Tract [place] sm, Malign ant: Throat Not available 05/07/2020 01:08:31 Unspecified Relation Malignant tumor of colon Aunt Not available 2023 08:21:19 Medical History Condition Response Cardiology- High Blood Pressure Y Endocrinology- Thyroid Problems Y Cardiac- Mitral Valve Prolapse Y Gynecological History Statement/Question Response History of Abnormal PAP Yes History of Recurrent Ovarian Cysts Age at Menarche: 12 Date of Last Mammogram 07/04/2022 Date of LMP Current Control Method Menopause History of Fibroids Y Date of Last Pap Smear 04/08/2019 Date of last bone density 05/29/2020 Obstetrics History GPAL:G 3 P 2 0 1 2 Type Value Multiple Births 0 Full Term 2 Induced 0 Spontaneous 1 Premature 0 Living 2 Ectopics 0 Total 3 Immunizations Vaccine Type Date Status Provider Name and Address Organization Details Recorded Time zoster recombinant 01/18/2021 completed Mireille Will null, [facility] 03/15/2024 08:20:39 zoster recombinant 07/27/2020 completed Mireille Will null, [facility] 03/15/2024 08:20:39 COVID-19, mRNA, LNP-S, PF, 30 mcg/0.3 mL dose 10/16/2020 completed Mireille Will null, [facility] 03/15/2024 08:20:39 COVID-19, mRNA, LNP-S, PF, 30 mcg/0.3 mL dose 09/25/2020 completed Mireille Will null, [facility] 03/15/2024 08:20:39 pneumococcal polysaccharide PPV23 05/01/2020 completed Mireille Will null, [facility] 03/15/2024 08:20:39 influenza, unspecified formulation 07/11/2014 completed Mireille Will null, [facility] 03/15/2024 08:20:39 influenza, unspecified formulation 07/30/2015 completed Mireille Will null, [facility] 03/15/2024 08:20:39 Tdap 10/31/2020 completed Mireille Will null, [facility] 03/15/2024 08:20:39 Tdap 02/26/2009 completed Mireille Will null, [facility] 03/15/2024 08:20:39 Influenza, split virus, trivalent, preservative 07/26/2013 completed Mireille Will null, [facility] 03/15/2024 08:20:39 Influenza, split virus, trivalent, PF 07/14/2016 completed Mireille Will null, [facility] 03/15/2024 08:20:39 Influenza, split virus, trivalent, PF 07/29/2007 completed Mireille Will null, [facility] 03/15/2024 08:20:39 Influenza, split virus, quadrivalent, PF 06/22/2014 completed Mrieille Will null, [place] [facility] 03/15/2024 08:20:39 Influenza, split virus, quadrivalent, PF 07/20/2018 completed M[place] Will null, [place] [facility] 03/15/2024 08:20:39 Influenza, split virus, quadrivalent, PF 07/22/2017 completed Mireille Will null, [facility] [employer] 03/15/2024 08:20:39 Influenza, split virus, quadrivalent, PF 07/23/2021 completed M[place] Will null, [place] [facility] 03/15/2024 08:20:39 Influenza, split virus, quadrivalent, PF 07/28/2019 completed Mireille Will null, [facility] [employer] 03/15/2024 08:20:39 Influenza, split virus, quadrivalent, PF 08/17/2020 completed Mireille Will null, [facility] [employer] 03/15/2024 08:20:39 Influenza, split virus, quadrivalent, 08/04/2022 completed Mireille Will null, [facility] [employer] 03/15/2024 08:20:49 Past Encounters Encounter ID Performer Location Encounter Start Date Encounter Closed Date Diagnosis/Indication Diagnosis SNOMED-CT Code Diagnosis ICD10 Code [id number] KANDACE SANCHEZ MD [id number] ,[address] [facility] [place] [address] 09/10/2020 12:02:11 09/10/2020 13:06:02 [id number] KANDACE SANCHEZ MD [id number] ,[address] [facility] [place] [address] 07/14/2022 10:58:28 07/16/2022 11:32:00 Gynecologic examination 06612096 Z01.419 Essential hypertension 26221311 I10 Hypercholesterolemia 136 88373 E78.00 [id number] KANDACE SANCHEZ MD [id number] ,[address] [facility] [address] 07/27/2023 15:46:42 07/29/2023 16:18:53 Gynecologic examination 05081885 Z01.924 [id number] RYAN CEJA MD [id number] [place] [place] ,[address] [facility] [place] [address] 03/15/2024 11:36:54 03/15/2024 12:28:31 Ulcer of genital labium 978975993 N76.6 Health Concerns Section Related Observation LastModified by Organization Detai ls LastModified Time None Recorded Concern Status LastModified by Organization Details LastModified Time None Recorded Advance Directives Directive None Recorded Payers Encounter Date Sequence Insurance Name Policy Number Policy Browne Covered Member ID Browne Member ID Guarantor Name 09/10/2020 1 [facility] [id number] Yuni Wilcox [id number] Yuni Wilcox 09/10/2020 2 [place] [employer] [facility] Yuni Wilcox [id number] Yuni Wiclox 07/14/2022 2 [place] [employer] [facility] Yuni Arellanork [id number] Yuni Arellanorelizabeth 07/14/2022 1 [employer] [id number] Jesus Wilcox [id number] Yuni Wilcox 07/27/2023 1 [employer] [id number] Jesus Wilcox [id number] Yuni Wilcox 03/15/2024 1 [place] Jesus Wilcox [id number] Yuni Wilcox Notes Date Note Type Note Provider Name and Address Organization Details Recorded Time 09/10/2020 text/html HPI Notes: Yuni presents today for her annual examination. She voices no specific gynecologic issues or concerns. She has continued working during the pandemic but plans to retire in the next year or so. She recently underwent a dental and gum grafting that has been a little bit more recovery than she anticipated. She is up-to-date on her routine screening exams and a bone density evaluation was done in May 2020 through [facility]. Her colonoscopy has also been completed. Mammography was done this past summer. She no longer needs Pap smear testing. 4 years ago she had a heart scan that was normal but showed a small pulmonary nodule measuring 3-4 mm. She will doing a repeat scan. She has completed 1 dose of the shingles vaccine but she may wait so that she can get the COVID-19 vaccine. Patient has had a couple of heart echoes which show a persistent small pericardial [place] [id number], [place], [address], [facility] [employer] 09/11/2020 09:27:00 07/14/2022 text/html HPI Notes: Yuni presents to our office today for her annual gynecologic examination. She voices no specific issues or concerns at this time. She has no postmenopausal bleeding has felt no breast lumps and has no issues with bladder or bowel function. Her mammogram is up-to-date, performed last week. Bone density was normal in 2010 but due again, no further Pap smears are necessary. Discussed colon cancer screening. She does see endocrine and primary care for her blood pressure and for elevated cholesterol. Cholesterol is due to be rechecked in September 2022[place] [id number], [place], [address], [facility] [employer] 07/15/2022 18:57:38 07/27/2023 text/html HPI Notes: Yuni presents to our office today for an annual gynecologic examination. She has no specific gynecologic issues or concerns at this time. She is due for a bilateral screening mammogram. Bone density is up-to-date, osteopenia in 2019. She no longer requires Pap smear testing. Colonoscopy was discussed and is recommended. Her primary concerns are medical which she is working on now that she is retired. This includes hypertension, persistent tinnitus, and some moderately elevated lipid panels. Its been recommended that she start a statin but she would like to avoid this if possible. She has no postmenopausal bleeding no breast masses of note and no other THERAPEUTIC RADIOLOGIST concerns. Yuni did have labs performed recently at her primary care provider which showed of note an elevated homocysteine level slightly low serum sodium and serum chloride. Vitamin D level is in range. Thyroid function tests are normal but thyroid peroxidase antibodies are markedly elevated. An iron profile was normal as was [place]12[place] [id number], [place], [address], [place] [facility] [employer] 07/29/2023 10:17:19 03/15/2024 text/html HPI Notes: Yuni reports vaginal/vulvar itching for about 3 weeks. Initially tried 1 day Monistat, no relief, then tried 3 day Monistat. Itching persisted. Accidentally scratched her inner labia on Thursday, now hurts and singh with urination. Did a telehealth visit through insurance and given topica mupriocin ointment and butt paste. This stung quite a bit. Has been doing sitz baths BID. [place]aving for [place] [id number], [place], [address], [place] [facility] [employer] 03/15/2024 12:22:07 OBGyn Episode Ob Episode Information Episode Created Date Number of Fetuses Patient Bloodtype Patient rh Status Prepregnancy Weight lbs Domestic Partner Domestic Partner Phone Father Name Rn Care Transition Status 09/10/20 20 1 CLOSED Fetus Data First Name Last Name Admitted to NICU Weight (g) Sex Living Outcome Pediatric Complications Fetus ID Race Codes Race Delivery Type 3770.25 [id number] F Full Term [id number] Prasanna Calculation Initial Prasanna Date Initial Exam Date Initial Exam Provider Initial Ultrasound Date Last Menstrual Period Date Ultra Sound Weeks Gestation 0 Eighteen To Twenty Week Prasanna Update Ultra Sound Date Fundal Height At Umbil Quickening Date Ultra Sound Latest Weeks Gestation Final Prasanna Confirmed By Final Prasanna Confirmed Date Final Prasanna Date Ultra Sound Latest Days Gestation 0 0 Menstrual History Last Menstrual Date Menses Monthly On Bcp Conception Prior Menses Frequency Hcg Plus Date Menarche Onset Age Delivery Information Delivery Date Delivery Type Labor Anesthesia Weeks Gestation Incision Type Labor Labor Length Hrs Delivered By Post Complications Tubal Sterilization Discharge Date Comments [address] [place] Discharge Information Feeding Method Contraceptive Method Maternal HG B and HCT Levels Ob Episode Information Episode Created Date Number of Fetuses Patient Bloodtype Patient rh Status Prepregnancy Weight lbs Domestic Partner Domestic Partner Phone Father Name Rn Care Transition Status 09/10/20 20 1 CLOSED Fetus Data First Name Last Name Admitted to NICU Weight (g) Sex Living Outcome Pediatric Complications Fetus ID Race Codes Race Delivery Type 4167.14 [id number] F Full Term [id number] Prasanna Calculation Initial Prasanna Date Initial Exam Date Initial Exam Provider Initial Ultrasound Date Last Menstrual Period Date Ultra Sound Weeks Gestation 0 Eighteen To Twenty Week Prasanna Update Ultra Sound Date Fundal Height At Umbil Quickening Date Ultra Sound Latest Weeks Gestation Final Prasanna Confirmed By Final Prasanna Confirmed Date Final Prasanna Date Ultra Sound Latest Days Gestation 0 0 Menstrual History Last Menstrual Date Menses Monthly On Bcp Conception Prior Menses Frequency Hcg Plus Date Menarche Onset Age Delivery Information Delivery Date Delivery Type Labor Anesthesia Weeks Gestation Incision Type Labor Labor Length Hrs Delivered By Post Complications Tubal Sterilization Discharge Date Comments [address] Daniel snyder Discharge Information Feeding Method Contraceptive Method Maternal HG B and HCT Levels
--- OUTSIDE RECORDS SUMMARY | 2024-07-01 08:03 | XMS_ITS | Referral Summary ---
Author Organization [facility] Address [address] [place] [address]. [place] [address] Care Team Providers Care Lead Rider Name Role Phone Rufino Perrin MD Primary Care Provider [phone] Social History Tobacco Use Types Packs/Day Years [...] Recently Relevant to Health Maintenance Care Teams Lead Rider Relationship Specialty Start Date End Date Rufino Perrin MD [address] [place] [phone] PCP - General user experience designer 12/06/13
--- OUTSIDE RECORDS SUMMARY | 2024-07-01 08:04 | XMS_ITS | Encounter Summary ---
Author Organization [facility] Address [address] [place] [address] Care Team Providers Care Pig Caster Name Role Phone Elsewhere, Pcp Primary Care Provider Unavailabl e Reason for Referral * Outpatient (Routine) - Closed Specialty Diagnoses / Procedures Referred By Danniac t Referred To Contact Diagnoses Kidney And Ureter Disorder Procedures DX Chest AP or PA and Lateral 2 Views Magda Farrar M.D. 200 [place] [address] [facility] Referral ID Status Reason Start Date Expiration Date Visits Re quested Visits Authorized [id number] Closed 03/21/2024 03/21/2025 1 1 Reason for Visit * Outpatient (Routine) - Closed Specialty Diagnoses / Procedures Referred By Contac t Referred To Contact Diagnoses Kidney And Ureter Disorder Procedures DX Chest AP or PA and Lateral 2 Views Magda Farrar M.D. 200 [place] [address] [facility] Referral ID Status Reason Start Date Expiration Date Visits Re quested Visits Authorized [id number] Closed 03/21/2024 03/21/2025 1 1 Encounter Details Date Type Department Care Team (Late st Contact Info) Description 04/19/2024 3:10 PM CDT - 04/19/2024 3:18 PM CDT Hospital Encounter Department of Radiology, [facility], in [place], [place] [address] [place] [address] Magda Farrar M.D. 200 [place] [address] Kidney And Ureter Disorder Discharge Disposition: Home [...] often do you attend chur ch or jewish services? More than 4 times per year [...] Answer Date Recorded PHQ-2 Score 0 07/14/2023 [facility] [place] of Occupat ional Health - Occupational Stress [...] AM CDT Clinical Communication Virtual Review in [place], [place] 200 [place] [address] 07/27/2024 1:00 PM CDT Comprehensive Visit Division of Endocrinology in [address] [phone] Darlin Back M.D., M.S. [address] [place] [phone] documented as of this encounter Procedures Procedure [...] Disorder documented in this encounter Care Teams Pig Caster Relationship Specialty Start Date End Date Elsewhere, Pcp PCP - General Family Medicine 04/19/24 documented as of this encounter
--- OUTSIDE RECORDS SUMMARY | 2024-07-01 08:04 | XMS_ITS | Encounter Summary ---
Author Organization [facility] Address [address] [place] [address] Care Team Providers Care Performance Analyst Name Role Phone Elsewhere, Pcp Primary Care Provider Unavailabl e Encounter Details Date Type Department Care Team (Late st Contact Info) Description 12/28/2006 Historical Ophthalmology RST OPH Klaudia Albarado M.D. [address] [place] [address] Social History Tobacco Use Types Packs/Day Years [...] macular degeneration some time ago, however, the food crops farm hand told her it was more peripheral. During [...] both eyes CDM Reports - EYEGEN Id: [id number] Status: Fnl documented in this encounter Plan of Treatment Upcoming Encounters Date Type Department Care Team (Latest Contact Info) Description 07/26/2024 10:00 AM CDT Clinical Communication Virtual Review in [place], [place] 200 [place] [address] 07/27/2024 1:00 PM CDT Comprehensive Visit Division of Endocrinology in [place], [place] [address] [place] [phone] Darlin Back M.D., M.S. [address] [place] [phone] documented as of this encounter Visit Diagnoses Not on filedocumented in this encounter Care Teams Performance Analyst Relationship Specialty Start Date End Date Elsewhere, Pcp PCP - General Family Medicine 04/19/24 documented as of this encounter
--- OUTSIDE RECORDS SUMMARY | 2024-07-01 08:04 | XMS_ITS | Encounter Summary ---
Author Organization [facility] Address [address] [place] [address] Care Team Providers Care Sand Mixer Operator Name Role Phone Elsewhere, Pcp Primary Care Provider Unavailabl e Encounter Details Date Type Department Care Team (Late st Contact Info) Description 04/11/2008 Historical Ophthalmology RST OPH Klaudia Albarado M.D. [address] [place] [address] Social History Tobacco Use Types Packs/Day Years [...] in [address] Alfaro in [place] DIAGNOSIS #1 Drusen OU #2 Cataract, both eyes CDM Reports - EYEGEN Id: [id number] Status: Fnl documented in this encounter Plan of Treatment Upcoming Encounters Date Type Department Care Team (Latest Contact Info) Description 07/26/2024 10:00 AM CDT Clinical Communication Virtual Review in [place], [place] 200 [place] [address] 07/27/2024 1:00 PM CDT Comprehensive Visit Division of Endocrinology in [place], [place] [address] [place] [phone] Darlin Back M.D., M.S. [address] [place] [phone] documented as of this encounter Visit Diagnoses Not on filedocumented in this encounter Care Teams Sand Mixer Operator Relationship Specialty Start Date End Date Elsewhere, Pcp PCP - General Family Medicine 04/19/24 documented as of this encounter
--- OUTSIDE RECORDS SUMMARY | 2024-07-01 08:04 | XMS_ITS | Encounter Summary ---
Author Organization [facility] Address [address] [place] [address] Care Team Providers Care Communication Manager Name Role Phone Elsewhere, Pcp Primary Care Provider Unavailabl e Reason for Referral * MRI/CAT/PET Scan (Routine) - Closed Specialty Diagnoses / Procedures Referred By Medhat t Referred To Contact Radiology Diagnoses Kidney And Ureter Disorder Procedures CT Abdomen without and with IV Contrast and Pelvis with IV Con CT Abdomen Pelvis with IV Contrast Magda Farrar M.D. 200 [place] [address] [facility] Referral ID Status Reason Start Date Expiration Date Visits Re quested Visits Authorized [id number] Closed 04/19/2024 05/19/2024 1 1 * Outpatient (Routine) - Closed Specialty Diagnoses / Procedures Referred By Contac t Referred To Contact Diagnoses Kidney And Ureter Disorder Procedures DX Chest AP or PA and Lateral 2 Views Magda Farrar M.D. 200 [place] [address] [facility] Referral ID Status Reason Start Date Expiration Date Visits Re quested Visits Authorized [id number] Closed 03/21/2024 03/21/2025 1 1 Encounter Details Date Type Department Care Team ([facility] st Contact Info) Description 03/21/2024 Clinical Communication Department of Urology in [place], [place] 200 [place] [phone] Gilberto Flynn M.D. 200 [place] [address] Social History Tobacco Use Types Packs/Day Years [...] often do you attend chur ch or episcopalian services? More than 4 times per year [...] Answer Date Recorded PHQ-2 Score 0 07/14/2023 [facility] of Occupat ional Health - Occupational Stress [...] AM CDT Clinical Communication Virtual Review in [place], [place] 200 [place] [address] 07/27/2024 1:00 PM CDT Comprehensive Visit Division of Endocrinology in [place], [place] [address] [place] [phone] Darlin Back M.D., M.S. [address] [place] [phone] documented as of this encounter Results * [...] CDT 04/19/2024 3:36 PM CDT Magda J Gilberton M.D. LAB BLOOD ADD-ON Performing Organization Address City/[facility] Co de Phone Number [facility] 200 [place] [address], [facility] 200 [place] [address] * ALT (Alanine Aminotransferase) (04/19/2024 3:03 PM CDT) Alanine Aminotransferase (ALT), S 20 7 - 45 U/L 04/19/2024 3:54 PM CDT DTL Blood (Blood, Venous) 04/19/2024 3:03 PM CDT 04/19/2024 3:36 PM CDT Magda Farrar M.D. LAB BLOOD ADD-ON Performing Organization Address City/[facility]/ZIP Co de Phone Number [facility] [address] [place] [address], [facility] 200 [place] [address] * AST (Aspartate Aminotransferase) (04/19/2024 3:03 PM CDT) Aspartate Aminotransferase (AST), S 18 8 - 43 U/L 04/19/2024 3:54 PM CDT DTL Blood (Blood, Venous) 04/19/2024 3:03 PM CDT 04/19/2024 3:36 PM CDT Magda Farrar M.D. 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
--- OUTSIDE RECORDS SUMMARY | 2024-07-01 08:04 | XMS_ITS | Encounter Summary ---
Author Organization [facility] Address [address] [place] [address] Care Team Providers Care Crushed Stone Grader Name Role Phone Elsewhere, Pcp Primary Care Provider Unavailabl e Encounter Details Date Type Department Care Team (Late st Contact Info) Description 04/19/2024 2:50 PM CDT - 04/19/2024 3:09 PM CDT Hospital Encounter Department of Laboratory Medicine and Pathology, [facility] in [place], [place] [address] [place] [address] Magda Farrar M.D. [address] [place] [phone] Kidney And Ureter Disorder Discharge Disposition: Home [...] often do you attend chur ch or anabaptist services? More than 4 times per year [...] Answer Date Recorded PHQ-2 Score 0 07/14/2023 [facility] - Occupational Stress Questionnaire Answer Date [...] AM CDT Clinical Communication Virtual Review in [place], [place] 200 [place] [address] 07/27/2024 1:00 PM CDT Comprehensive Visit Division of Endocrinology in [address] [phone] Darlin Back M.D., M.S. [address] [place] [phone] documented as of this encounter Procedures Procedure [...] CDT Magda Farrar M.D. LAB BLOOD ADD-ON [facility] [address] [place] [address] * ALT (Alanine Aminotransferase) (04/19/2024 3:03 PM CDT) Alanine Aminotransferase (ALT), S 20 7 - 45 U/L 04/19/2024 3:54 PM CDT DTL Blood (Blood, Venous) 04/19/2024 3:03 PM CDT 04/19/2024 3:36 PM CDT Magda Farrar M.D. LAB BLOOD ADD-ON [facility] [address] [place] [address] * AST (Aspartate Aminotransferase) (04/19/2024 3:03 PM CDT) Aspartate Aminotransferase (AST), S 18 8 - 43 U/L 04/19/2024 3:54 PM CDT DTL Blood (Blood, Venous) 04/19/2024 3:03 PM CDT 04/19/2024 3:36 PM CDT Magda Farrar M.D. LAB BLOOD ADD-ON [place] [address] [place] [address], [facility] [address] [place] [address] documented in this encounter Visit Diagnoses Diagnosis Kidney And Ureter Disorder documented in this encounter Care Teams Crushed Stone Grader Relationship Specialty Start Date End Date Elsewhere, Pcp PCP - General Family Medicine 04/19/24 documented as of this encounter
--- OUTSIDE RECORDS SUMMARY | 2024-07-01 08:04 | XMS_ITS | Encounter Summary ---
Author Organization [facility] Address [address] [place] [address] Care Team Providers Care Chef Name Role Phone Elsewhere, Pcp Primary Care Provider Unavailabl e Reason for Referral * MRI/CAT/PET Scan (Routine) - Closed Specialty Diagnoses / Procedures Referred By Danniac t Referred To Contact Radiology Diagnoses Kidney And Ureter Disorder Procedures CT Abdomen without and with IV Contrast and Pelvis with IV Con CT Abdomen Pelvis with IV Contrast Magda Farrar M.D. 200 [place] [address] [facility] Referral ID Status Reason Start Date Expiration Date Visits Re quested Visits Authorized [id number] Closed 04/19/2024 05/19/2024 1 1 Reason for Visit * MRI/CAT/PET Scan (Routine) - Closed Specialty Diagnoses / Procedures Referred By Contac t Referred To Contact Radiology Diagnoses Kidney And Ureter Disorder Procedures CT Abdomen without and with IV Contrast and Pelvis with IV Con CT Abdomen Pelvis with IV Contrast Magda Farrar M.D. [address] [place] [phone] [facility] Referral ID Status Reason Start Date Expiration Date Visits Re quested Visits Authorized [id number] Closed 04/19/2024 05/19/2024 1 1 Encounter Details Date Type Department Care Team ([facility] st Contact Info) Description 04/19/2024 3:19 PM CDT - 04/19/2024 11:59 PM CDT Hospital Encounter Department of Radiology, [facility], in [place], [place] 200 [place] [address] Magda Farrar M.D. 200 [place] [address] Kidney And Ureter Disorder Discharge Disposition: Home [...] How often do you attend chur or pentecostal services? More than 4 times per year [...] Answer Date Recorded PHQ-2 Score 0 07/14/2023 [facility] [place] of Occupat ional Health - Occupational Stress [...] AM CDT Clinical Communication Virtual Review in [place], [place] 200 [place] [address] 07/27/2024 1:00 PM CDT Comprehensive Visit Division of Endocrinology in [address] [phone] Darlin Back M.D., M.S. [address] [place] [phone] documented as of this encounter Procedures Procedure [...] mL documented in this encounter Care Teams Chef Relationship Specialty Start Date End Date Elsewhere, Pcp PCP - General Family Medicine 04/19/24 documented as of this encounter
[2024-07-01] MEDS: SODIUM CHLORIDE 0.9 % (FLUSH) 10 ML SYRINGE IVF (08:15)
[2024-07-01] MEDS: LACTATED RINGERS 1000 ML 1,000 ML 100 ML IV (08:15)
[2024-07-01] MEDS: OXYMETAZOLINE 0.05% NASAL SPRAY 2 SPRAY NOSTRIL-B (08:29)
--- NOTE | 2024-07-01 10:00 | W.ANESCHARGE ---
Anesthesia Charges Start Date/Time Anesthesia Start Date: 07/01/24 Anesthesia Start Time: 09:33 Stop Date/Time Anesthesia Stop Date: 07/01/24 Anesthesia Stop Time: 10:03
--- NOTE | 2024-07-01 10:34 | SUR.PHASEI ---
Patient awake and talkative, slight headache, not wanting pain medications. Patient meets anesthesia discharge criteria for PACU.
[2024-07-01] MEDS: ACETAMINOPHEN 325 MG TABLET PO (10:48)
--- NOTE | 2024-07-01 11:03 | W.PM.ENTPROC ---
Procedure Note Date of procedure: 07/01/24 Procedure: Preoperative diagnosis nasal headache nasal obstruction left middle turbinate tammy bullosa inferior turbinate hypertrophy superior right septal deviation postoperative diagnosis same procedure limited septoplasty, submucous partial resection inferior turbinates bilateral, endoscopic partial resection left middle turbinate tammy bullosa Under general trach anesthesia patient was prepped and draped usual fashion nose decongested and injected. 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 The left middle turbinate tammy was incised along its inferolateral aspect and then the bone infractured the turbinate crushed with the Edwin forceps. A stab incision was made in the anterior of the right inferior turbinate a tunnel created with a Jerome dissector and conservative anterior submucous resection performed. The Coblation was used for hemostasis and to cauterize intramurally along the inferior 10%. This was repeated on the left side in identical fashion. The septum was this deflected superiorly to the right compressing the right middle turbinate. Incision was made in mucosa anterior to this the mucosa was elevated and then the bone was just fractured to the midline. This was done with a Rylee dissector. Merocel packing coated in Bactroban was placed on either side of the septum. The patient procedure well was taken recovery in satisfactory condition blood loss was less than 10 mL. Surgeon: Mario Charlton MD
--- NOTE | 2024-07-01 11:16 | W.ANESCHARGE ---
Anesthesia Charges Start Date/Time Anesthesia Start Date: 07/01/24 Anesthesia Start Time: 09:33 Stop Date/Time Anesthesia Stop Date: 07/01/24 Anesthesia Stop Time: 10:03
== END 2024-07-01 11:53 | disposition home or self-care (01) ==
PROVIDERS: PCP Family Medicine; Visit Provider Otolaryngology
PROC: (CPT 31231; principal; 2024-07-01 09:15)
DX: J34.2 Deviated nasal septum (principal); J34.3 Hypertrophy of nasal turbinates; J34.89 Other specified disorders of nose and nasal sinuses; R51.9 Headache, unspecified
CPT/HCPCS: 30520; 30140; 31240; 00160; A9270; J0330; J1100; J2250; J2405; J2704; J3010; J7120